=== PATIENT | female | born 1995 | race Caucasian/White ===

== ENCOUNTER 2020-07-06 16:57 | Outpatient (CLI) | payer OTHER, SELFPAY ==
--- NOTE | ~2020-07-06 | US_ITS ---
EXAMINATION: US thyroid EXAM DATE: 07/06/2020 17:16 INDICATION: Enlarged thyroid. TECHNIQUE: Multiple grayscale and Doppler images of the thyroid were obtained (by a technologist who performed the scan) and subsequently reviewed. Individual nodules and recommendations may be reporte d in accordance with TI-RADS system as designated by the 2017 ACR White Paper TI-RADS committee. The re is no prior study for comparison. FINDINGS: The right thyroid lobe measures 4.6 x 1.3 x 1.3 cm, the left measuring 4.6 x 1.5 x 1.6 cm. There is m ildly diffusely heterogeneous and hypervascular thyroid echogenicity. No discrete focal nodules ident ified. IMPRESSION: Thyromegaly. Reviewed, dictated and finalized at location A. IMPRESSION: Thyromegaly.
== END 2020-07-06 16:58 | disposition home or self-care (01) ==
PROVIDERS: Visit Provider Obstetrics & Gynecology
DX: E04.9 Nontoxic goiter, unspecified (principal)
CPT/HCPCS: 76536

== ENCOUNTER 2020-07-08 08:06 | Outpatient (CLI) | payer OTHER, SELFPAY ==
[2020-07-08 09:07] LABS: Free T4 Free Thyroxine 0.96 ng/mL (0.78-2.19)
== END 2020-07-08 08:07 | disposition home or self-care (01) ==
PROVIDERS: Visit Provider Obstetrics & Gynecology
DX: E07.9 Disorder of thyroid, unspecified (principal)
CPT/HCPCS: 36415; 84439; 84443

== ENCOUNTER 2020-09-29 07:10 | Outpatient (CLI) | payer OTHER, SELFPAY ==
[2020-09-29 07:48] LABS: Basophils Percent Auto 0.5 % (0.2-1.2); Eosinophils Absolute Auto 0.2 K/mm3 (0-0.3); Eosinophils Percent Auto 2.7 % (0-4.4); Hematocrit 47.2 % (37.0-47.0); Hemoglobin 16.1 g/dL (12.0-15.0); Immature Granulocyte Absolute 0.01 K/mm3 (0.00-0.031); Immature Granulocyte Percent A 0.2 % (0-0.5); Lymphocytes Absolute Auto 2.51 K/mm3 (0.9-3.2); Lymphocytes Percent Auto 39.8 % (18.3-44.2); Mean Corpuscular HGB Conc 34.1 g/dl (32-36); Mean Corpuscular Volume 99.6 fl (80-100); Mean Platelet Volume 10.6 fl (7.4-10.4); Monocytes Absolute Auto 0.4 K/mm3 (0.1-0.6); Monocytes Percent Auto 6.3 % (2.6-8.5); Neutrophils Absolute Auto 3.2 K/mm3 (1.3-6.7); Neutrophils Percent Auto 50.5 % (45.5-73.1); Platelet Count Result 181 k/mm3 (150-375); Red Blood Count 4.74 M/mm3 (4.2-5.4); Red Cell Distribution Width 12.2 % (11.5-14.5); White Blood Count 6.3 K/mm3 (4.5-10.0)
[2020-09-29 08:08] LABS: Iron 91 ug/dL (37-170)
[2020-09-29 08:18] LABS: Percent Iron Saturation 29 % (20-50)
[2020-09-29 08:33] LABS: Vitamin D 25 Hydroxy 48.4 ng/mL
[2020-09-29 09:05] LABS: Folic Acid 16.9 ng/mL (2.76->20)
[2020-10-03 05:31] LABS: Thyroid Peroxidase Antibodies 39 IU/mL (<9)
[2020-10-03 14:57] LABS: Thyroid Stimulating Immunoglob <89 % baseline (<140)
[2020-10-04 14:24] LABS: Triiodothyronine T3 Free 3.3 pg/mL (2.3-4.2)
== END 2020-09-29 07:11 | disposition home or self-care (01) ==
PROVIDERS: Visit Provider Internal Medicine Endocrinology, Diabetes & Metabolism
DX: R53.83 Other fatigue (principal)
CPT/HCPCS: 36415; 82306; 82607; 82728; 82746; 83540; 83550; 84439; 84443; 84445; 84481; 85025; 86376

== ENCOUNTER 2022-12-29 10:21 | Emergency (ER) | payer OTHER, SELFPAY ==
[2022-12-29 10:47] LABS: Basophils Percent Auto 0.2 % (0.2-1.2); Eosinophils Absolute Auto 0.1 K/mm3 (0-0.3); Hematocrit 41.7 % (37.0-47.0); Hemoglobin 14.6 g/dL (12.0-15.0); Immature Granulocyte Absolute 0.02 K/mm3 (0.00-0.031); Immature Granulocyte Percent A 0.2 % (0-0.5); Lymphocytes Absolute Auto 1.59 K/mm3 (0.9-3.2); Mean Corpuscular Volume 97.2 fl (80-100); Mean Platelet Volume 10.4 fl (7.4-10.4); Monocytes Absolute Auto 0.4 K/mm3 (0.1-0.6); Monocytes Percent Auto 4.7 % (2.6-8.5); Neutrophils Absolute Auto 7.2 K/mm3 (1.3-6.7); Neutrophils Percent Auto 76.9 % (45.5-73.1); Platelet Count Result 149 k/mm3 (150-375); Red Blood Count 4.29 M/mm3 (4.2-5.4); Red Cell Distribution Width 12.7 % (11.5-14.5); White Blood Count 9.4 K/mm3 (4.5-10.0)
[2022-12-29 10:54] LABS: Appearance Urine Slightly Cloudy (Clear); Bilirubin Urine Negative (Negative); Blood Urine Trace-intact (Negative); Color Urine Yellow (Yellow); Glucose Urine UA Negative (Negative); Ketones Urine Negative (Negative); Leukocyte Esterase Ur Trace LEU/UL (Negative); Nitrate Urine Positive (Negative); Protein Urine Negative (Negative); Urobilinogen Urine 0.2 mg/dL (<2.0); pH Urine 6.5 (5.0-9.0)
[2022-12-29 10:58] LABS: Alanine Aminotransferase 14 U/L (6-35); Albumin Level 3.8 g/dL (3.5-5.1); Alkaline Phosphatase 58 U/L (38-126); Anion Gap 8 mmol/L (8-16); Aspartate Amino Transferase 17 U/L (14-36); Bilirubin,Total 0.4 mg/dL (0.2-1.3); Blood Urea Nitrogen 8 mg/dL (7-17); Calcium 8.7 mg/dL (8.4-10.2); Carbon Dioxide 21 mmol/L (22-30); Chloride 106 mmol/L (98-107); Estimated CRCL calculation 139 ml/min; Estimated Glomerular Filt Rate > 60; Glucose 86 mg/dL (65-110); Potassium 3.5 mmol/L (3.4-5.0); Sodium 135 mmol/L (137-145)
[2022-12-29 11:05] LABS: Bacteria Urine 4+ /hpf; Mucus Urine Rare /lpf; Squamous Epithelial Cell Urine Few /hpf (Few)
[2022-12-29 11:06] LABS: Add Urine Microscopic? YES
--- NOTE | 2022-12-29 11:10 | ED.ABDPAIN ---
HPI - Abdominal Pain General Chief Complaint: Abdominal Pain Stated Complaint: poss hernia, 15 weeks preg Time Seen by Provider: 12/29/22 10:26 History of Present Illness HPI narrative: Patient is a 27 y/o female who presents to the ED with concern for an umbilical hernia. Patient is and currently 15 weeks gestation, confirmed IUP, she sees Seema public information relations manager at [facility]. Patient reports yesterday she noticed a small bulge just superior to her umbilical region. She complains of tenderness when pressing on the bulge, but otherwise denies any pain. Denies any lower abdominal pain. Denies vaginal bleeding or leakage of fluid. Denies fevers, nausea, vomiting, constipation, urinary sx's. Related Data Allergies Allergy/AdvReac Type Severity Reaction Status Date / Time No Known Allergies Allergy Mild Verified 12/29/22 10:51 Review of Systems Review of Systems: CONSTITUTIONAL: Denies fever, chills, or sweats. CARDIOVASCULAR: Denies chest pain. RESPIRATORY: Denies dyspnea. GASTROINTESTINAL: See HPI. GENITOURINARY: Denies vaginal bleeding, fluid leakage, dysuria, or hematuria. All systems reviewed & are unremarkable except as noted in HPI and below PMFSH Past Medical History Medical History Syncope chronic history Surgical History Surgical History (Updated 12/29/22 @ 19:25 by Alison Farmer PA-C) No pertinent past surgical history Family History Family History Mother Patient's mother is in good health Father Patient's father is in good health Social History Social History Years smoked: 10 Smoking status: Current every day smoker Tobacco type: cigarettes Second hand tobacco smoke exposure: Yes Alcohol intake: never Substance use: current Gender identity (if verbalized by the patient): Female Spiritual care concerns: No Exam Narrative: GENERAL: Well appearing, well-nourished, non-toxic, in no acute distress. HEAD: Normocephalic, atraumatic. NECK: Supple. No adenopathy, no masses. RESPIRATORY: Airway patent, respirations nonlabored. Clear to auscultation bilaterally, no rales, rhonchi, wheezing. CARDIOVASCULAR: Regular rate and rhythm without murmurs, rubs, or gallops. Peripheral pulses 2+ and equal bilaterally. ABDOMINAL: Soft, very small supraumbilical/ventral wall hernia palpated 2 fingerbreadths above umbilicus, minimally tender to manipulation, bulge soft, no overlying erythema, warmth, skin changes. Normoactive BS. No lower abdominal tenderness. MUSCULOSKELETAL: Moves all extremities. Strength/ROM intact without gross deformities. SKIN: Warm, dry, normal color. No rashes. NEURO: A&O X3. Speech clear. Cranial nerves II-XII grossly intact. Steady gait. No ataxic movements. PSYCHIATRIC: Appropriate mood and affect. Normal interaction. Course Vital Signs Vital signs: Vital Signs Pulse Rate 87 12/29/22 11:41 Respiratory Rate 18 12/29/22 11:41 Blood Pressure 112/69 12/29/22 11:41 Pulse Oximetry 100 12/29/22 11:41 Pulse Rate 87 12/29/22 11:41 Respiratory Rate 18 12/29/22 11:41 Blood Pressure 112/69 12/29/22 11:41 Pulse Oximetry 100 12/29/22 11:41 MDM - Abdominal Pain MDM Narrative Medical decision making narrative: Patient presented to ED with concern for umbilical hernia, very small hernia defect palpated on exam, minimally tender, no overlying skin changes. Able to partially reduce, likely due to small wall defect/opening. Patient without any worrisome symptoms regarding hernia. She is currently , 15 weeks gestation, confirmed IUP. No lower abdominal pain, vaginal bleeding, nausea/vomiting. I updated patient case with Dr. Gill, on-call for [facility]. No further recommendations at this time. Patient has OB follow-up on 01/09. I discuss
[2022-12-29 11:41] VITALS: BP 112/69; PULSE 87; RESP 18; O2SAT 100
== END 2022-12-29 11:45 | disposition home or self-care (01) ==
PROVIDERS: Emergency Provider Physician Assistant
DX: O99.612 Diseases of the digestive system complicating pregnancy, second trimester (principal); K43.9 Ventral hernia without obstruction or gangrene; O23.42 Unspecified infection of urinary tract in pregnancy, second trimester; O99.332 Smoking (tobacco) complicating pregnancy, second trimester; F17.210 Nicotine dependence, cigarettes, uncomplicated; Z3A.15 15 weeks gestation of pregnancy
CPT/HCPCS: 36415; 80053; 81001; 85025; 87077; 87086; 87186; 99283

== ENCOUNTER 2023-05-30 12:18 | Inpatient (IN) | payer OTHER, SELFPAY ==
[2023-05-30] VITALS (35 sets, daily range): BP systolic 99–140; BP diastolic 45–96; PULSE 64–109; TEMP 36.6–37.5; BMI 26.1
[2023-05-30 10:13] LABS: Collection Time Urine 24 HOURS
[2023-05-30 10:19] LABS: Basophils Percent Auto 0.1 % (0.2-1.2); Eosinophils Absolute Auto 0.1 K/mm3 (0-0.3); Eosinophils Percent Auto 0.7 % (0-4.4); Hematocrit 41.2 % (37.0-47.0); Hemoglobin 13.9 g/dL (12.0-15.0); Immature Granulocyte Absolute 0.04 K/mm3 (0.00-0.031); Immature Granulocyte Percent A 0.4 % (0-0.5); Immature Platelet Fraction Pct 18.3 % (0.9-11.2); Lymphocytes Absolute Auto 1.86 K/mm3 (0.9-3.2); Lymphocytes Percent Auto 20.5 % (18.3-44.2); Mean Corpuscular HGB Conc 33.7 g/dl (32-36); Mean Corpuscular Hemoglobin 33.2 pg (26-34); Mean Corpuscular Volume 98.3 fl (80-100); Mean Platelet Volume 12.9 fl (7.4-10.4); Monocytes Absolute Auto 0.6 K/mm3 (0.1-0.6); Monocytes Percent Auto 6.4 % (2.6-8.5); Neutrophils Absolute Auto 6.5 K/mm3 (1.3-6.7); Neutrophils Percent Auto 71.9 % (45.5-73.1); Platelet Count Result 112 k/mm3 (150-375); Red Blood Count 4.19 M/mm3 (4.2-5.4); Red Cell Distribution Width 13.8 % (11.5-14.5); White Blood Count 9.1 K/mm3 (4.5-10.0)
[2023-05-30 10:21] LABS: Creatinine Urine 95.2 mg/dL; Patient Weight 152 Lbs; Total Protein Urine Random 44 mg/dL
[2023-05-30 10:26] LABS: Alanine Aminotransferase 15 U/L (6-35); Albumin Level 3.5 g/dL (3.5-5.1); Alkaline Phosphatase 113 U/L (38-126); Anion Gap 3 mmol/L (8-16); Aspartate Amino Transferase 18 U/L (14-36); Bilirubin,Total 0.3 mg/dL (0.2-1.3); Blood Urea Nitrogen 10 mg/dL (7-17); Carbon Dioxide 22 mmol/L (22-30); Chloride 107 mmol/L (98-107); Estimated CRCL calculation 88 ml/min; Estimated Glomerular Filt Rate > 60; Glucose 94 mg/dL (65-110); Potassium 3.8 mmol/L (3.4-5.0); Sodium 132 mmol/L (137-145); Uric Acid 4.8 mg/dL (2.5-7.5)
[2023-05-30 10:39] LABS: Total Protein Urine 24 Hr 396 mg/24hr (28-141); Total Volume 24 Hour Urine 900 ml
[2023-05-30 10:47] LABS: Creatinine Clearance Urine 84.8 ml/min (75-125)
--- NOTE | 2023-05-30 13:33 | LDADM ---
This patient, Ev Logan, was admitted to Labor/Delivery/Recovery 108 on 05/30/23 at 12:18. Plans for labor, pain management and were discussed with patient. Patient/family oriented to hospital policies and general routines including ID bracelet, bed and alarms, visiting hours, pain management, procedures, bathroom and other care routines, personal items, smoking policy, room service/diet and guest tray routines, security routines, and visiting hours. Patient/Family are encouraged to report perceived risks to care and to ask questions if they do not understand what they are told or what they should do. See OBIX for further documentation.
[2023-05-30] MEDS: DINOPROSTONE 10 MG VAG INSERT VAGINAL (14:04)
[2023-05-30 14:49] LABS: HIV 1/2 Ab P24 Ag Result Negative (Negative)
[2023-05-30] MEDS: FAMOTIDINE 20 MG/2 ML VIAL IV PUSH (16:28)
--- NOTE | 2023-05-30 18:22 | PM.IMHP ---
H&P: HPI History of Present Illness Date/Time: 05/30/23 18:22 Chief Complaint: induction of labor Narrative: Ev is a at 37.4 for IOL preE. 24 hour urine 398 today. BPs very mildly elevated. US today also showed IUGR with growth at 8% with AC at 1%. GBS neg. Of note, FOB during this in March. Review of Systems Review of Systems: All systems reviewed & are unremarkable except as noted in HPI and below PMFSH Past Medical History Medical History (Updated 05/30/23 @ 18:24 by Linnea Gill MD) Syncope chronic history Surgical History Surgical History (Updated 12/29/22 @ 19:25 by Alison Farmer PA-C) No pertinent past surgical history Family History Family History Mother Patient's mother is in good health Father Patient's father is in good health Social History Social History Years smoked: 10 Smoking status: Current every day smoker Tobacco type: cigarettes Second hand tobacco smoke exposure: No Alcohol intake: never Substance use: current Lack of Transportation: No Lack of Food: Never True Current Housing: I Have Housing Concerned About Future Housing: YES Difficulty Paying Gas/Electric Bills: No Difficulty Paying for Meds: No Currently Unemployed: No Education: Associate Degree Difficulty w/ Childcare or Family Care: No Gender identity (if verbalized by the patient): Female Spiritual care concerns: No Meds Home Medications and Allergies Home Medications Medication Instructions Recorded Confirmed Type docusate sodium 100 mg capsule 100 mg PO BID PRN Constipation 11/17/19 Rx medroxyprogesterone 150 mg/mL 150 mg IM [id number] #1 mL 11/17/19 Rx intramuscular suspension (Depo-Provera) cephalexin 500 mg capsule 500 mg PO Q6H 7 days #28 caps 12/29/22 05/30/23 Rx Classic 05/30/23 History sertraline 50 mg tablet 50 mg PO DAILY 05/30/23 05/30/23 History Allergies Allergy/AdvReac Type Severity Reaction Status Date / Time No Known Allergies Allergy Mild Verified 12/29/22 10:51 Vital Signs Vital Signs - 24 hr 05/30/23 10:07 05/30/23 10:16 05/30/23 10:31 Temperature Pulse Rate 75 75 75 Blood Pressure 140/70 127/84 119/77 Oxygen Delivery 05/30/23 10:46 05/30/23 11:01 05/30/23 11:16 Temperature Pulse Rate 67 69 69 Blood Pressure 116/69 139/79 124/79 Oxygen Delivery 05/30/23 11:31 05/30/23 11:45 05/30/23 11:00 Temperature 98 F Pulse Rate 68 65 Blood Pressure 114/73 119/70 Oxygen Delivery 05/30/23 12:01 05/30/23 14:04 05/30/23 14:15 Temperature Pulse Rate 69 64 65 Blood Pressure 119/70 140/83 110/59 L Oxygen Delivery 05/30/23 14:30 05/30/23 14:46 05/30/23 15:00 Temperature Pulse Rate 71 71 81 Blood Pressure 114/64 109/57 L 110/65 Oxygen Delivery 05/30/23 15:15 05/30/23 15:30 05/30/23 15:45 Temperature Pulse Rate 75 79 79 Blood Pressure 106/46 L 125/73 122/70 Oxygen Delivery 05/30/23 16:00 05/30/23 16:29 05/30/23 17:00 Temperature 98.3 F Pulse Rate 91 78 74 Blood Pressure 132/85 122/45 L 134/96 H Oxygen Delivery 05/30/23 17:30 05/30/23 18:00 05/30/23 13:24 Temperature Pulse Rate 71 68 Blood Pressure 135/78 129/82 Oxygen Delivery Room Air Exam Const: General: no acute distress Resp: Effort & Inspection: normal respiratory effort Auscultation: clear to auscultation bilaterally Cardio: Rate: regular rate Rhythm: regular rhythm GI: GI Palp: Yes Soft to palpation Extrem: General: normal to inspection H&P: Results Labs Labs: Short CBC 05/30/23 Range/Units 09:58 WBC 9.1 (4.5-10.0) K/mm3 Hgb 13.9 (12.0-15.0) g/dL Hct 41.2 (37.0-47.0) % Plt Count 112 L (150-375) k/mm3 BMP 05/30/23 09:57 Sodium 132 L Potassium 3.8 Chloride 107 Carbon Jose Carlos
--- NOTE | 2023-05-30 18:45 | WPDANESEPP ---
Anes - Eval Pre Procedure Procedure: labor epidural Date/Time: 05/30/23 18:45 Surgeon: leandra Preop Diagnosis: pain during labor Pre Op Diagnosis: PIH Patient Data Age: 27 Gender: F Height: 1.63 m Weight: 69 kg Last Vital Signs Temp 36.8 C 05/30/23 16:00 Pulse 109 H 05/30/23 18:31 BP 121/73 05/30/23 18:31 O2 Del Method Room Air 05/30/23 13:24 Allergies Allergy/AdvReac Type Severity Reaction Status Date / Time No Known Allergies Allergy Mild Verified 12/29/22 10:51 Home Medications Medication Instructions Recorded Confirmed Type docusate sodium 100 mg capsule 100 mg PO BID PRN Constipation 11/17/19 Rx medroxyprogesterone 150 mg/mL 150 mg IM [id number] #1 mL 11/17/19 Rx intramuscular suspension (Depo-Provera) cephalexin 500 mg capsule 500 mg PO Q6H 7 days #28 caps 12/29/22 05/30/23 Rx Classic 05/30/23 History sertraline 50 mg tablet 50 mg PO DAILY 05/30/23 05/30/23 History Laboratory Tests 05/30/23 05/30/23 05/30/23 09:57 09:58 12:44 WBC 9.1 K/mm3 (4.5-10.0) RBC 4.19 L M/mm3 (4.2-5.4) Hgb 13.9 g/dL (12.0-15.0) Hct 41.2 % (37.0-47.0) MCV 98.3 fl (80-100) MCH 33.2 pg (26-34) MCHC 33.7 g/dl (32-36) RDW 13.8 % (11.5-14.5) Plt Count 112 L k/mm3 (150-375) MPV 12.9 H fl (7.4-10.4) Immature Gran % (Auto) 0.4 % (0-0.5) Neut % (Auto) 71.9 % (45.5-73.1) Lymph % (Auto) 20.5 % (18.3-44.2) Lynn % (Auto) 6.4 % (2.6-8.5) Eos % (Auto) 0.7 % (0-4.4) Baso % (Auto) 0.1 L % (0.2-1.2) Lymph # (Auto) 1.86 K/mm3 (0.9-3.2) Lynn # (Auto) 0.6 K/mm3 (0.1-0.6) Eos # (Auto) 0.1 K/mm3 (0-0.3) Baso # (Auto) 0.0 K/mm3 (0.0-0.1) Abs Immat Gran (auto) 0.04 H K/mm3 (0.00-0.031) Absolute Neuts (auto) 6.5 K/mm3 (1.3-6.7) Absolute Nucleated RBC 0.0 K/mm3 (0.0-0.012) Nucleated RBC % 0.0 % (0.0-0.2) % Immature Plt Fraction 18.3 H % (0.9-11.2) Sodium 132 L mmol/L (137-145) Potassium 3.8 mmol/L (3.4-5.0) Chloride 107 mmol/L (98-107) Carbon Dioxide 22 mmol/L (22-30) Anion Gap 3 L mmol/L (8-16) BUN 10 mg/dL (7-17) Creatinine 0.70 mg/dL (0.7-1.0) Estim Creat Clear Calc 88 ml/min Estimated GFR > 60 (59 - ) Glucose 94 mg/dL (65-110) Uric Acid 4.8 mg/dL (2.5-7.5) Calcium 8.0 L mg/dL (8.4-10.2) Total Bilirubin 0.3 mg/dL (0.2-1.3) AST 18 U/L (14-36) ALT 15 U/L (6-35) Alkaline Phosphatase 113 U/L (38-126) Total Protein 6.0 L g/dL (6.3-8.2) Albumin 3.5 g/dL (3.5-5.1) U Random Total Protein 44 mg/dL Ur 24 Hour Volume 900 ml Urine Creatinine 95.2 mg/dL Creatinine Clearance 84.8 ml/min (75-125) Ur Total Protein 24 Hr 396 H mg/24hr (28-141) RPR Pending HIV 1&2 Ab/P24 Ag 4thGn Negative (Negative) Blood Type A Positive Antibody Screen Negative Patient hx anesthesia problems: none Family hx anesthesia problems: none Results Review: All pre-operative results and documents have been reviewed as part of the pre-operative evaluation. [facility] Past Medical History Medical History (Updated 05/30/23 @ 18:24 by Linnea Gill MD) Syncope chronic history Surgical History Surgical History (Updated 12/29/22 @ 19:25 by Alison Farmer PA-C) No pertinent past surgical history Family History Family History Mother Patient's mother is in good health Father Patient's father is in good health Social History Social History (Reviewed 12/02
[2023-05-31] VITALS (87 sets, daily range): BP systolic 83–196; BP diastolic 46–175; PULSE 58–215; RESP 17–18; TEMP 36.6–37.8; O2SAT 94–99
[2023-05-31] MEDS: OXYTOCIN 30 UNITS/NS 500 ML 30 UNITS/500 ML BAG IV CONT (03:24)
[2023-05-31] MEDS: LACTATED RINGERS 1,000 ML 125 ML IV CONT (03:24)
--- NOTE | 2023-05-31 06:25 | PM.OBPRVD ---
OB - Delivery Note Procedure Delivery date: 05/31/23 Procedure: Events: Intrauterine Growth Restriction (IUGR) and Preeclampsia w/o severe features Induction method: Per Pitocin Protocol and Per Cervidil Protocol Delivery monitor: External FHT and External Uterine Route of delivery: Laceration Description: None Specimen: Yes Quantitative Blood Loss (ml): 75 Anesthesia type: Epidural Disposition: Floor Narrative: With adequate expulsive efforts by the mother, the baby's head was delivered OA. The baby's anterior shoulder was delivered under the pubic symphysis without difficulty. The posterior shoulder and the rest of the baby delivered without difficulty. The infant was placed on the mothers chest and suctioned and stimulated. The cord was clamped and cut after 30 seconds. Mother and baby both stable. [place] Baby Date of : 05/31/23 Time of : 06:09 Weeks of gestation at delivery: 37 gender: Female presentation: vertex Placenta delivery description: Spontaneous Cord Vessel Description: 3 Vessels, Nuchal Cord and Delayed Cord Clamping score one minute: 8 score five minutes: 9
[2023-05-31] MEDS: OXYTOCIN 30 UNITS/NS 500 ML 30 UNITS/500 ML BAG 125 UNITS IV CONT (06:44)
--- NOTE | 2023-05-31 08:57 | OBPPTRN ---
Patient transferred to post room # 282 via wheelchair. Support person present. Oriented to unit, room, information board, rooming in, admission packet and security measures. Patient verbalizes understanding.
[2023-05-31] MEDS: TETANUS,DIPHTHERIA,AC PERTUSSIS ADULT (0.5 ML) BOOSTRIX IM (10:42)
[2023-05-31] MEDS: MULTIVIT/MIN/PREN/FOL AC/IRON TABLET 1 TAB PO (10:42)
[2023-05-31] MEDS: IBUPROFEN 600 MG TABLET PO (17:18)
--- NOTE | 2023-06-01 04:42 | PM.OBPNVD ---
OB - PN: Subj Subjective Date/time seen: 06/01/23 04:42 Patient comments: no complaints and pain well controlled baby status: doing well and nursing well Narrative: Baby with some low blood sugars so nursing q2 hours now. OB - PN: Obj Data Labs 05/30/23 09:58 05/30/23 09:57 OB - PN A/P Plan day: 1 Plan: routine care Comments: H/H pending. Normotensive since delivery DC home tomorrow. Time Spent With Patient Time: Total time spent is greater than 50% in coordination of care (as documented) at patient's floor/unit and/or counseling patient: Time with patient: less than 15 minutes Exam Narrative: NAD abdomen soft, nontender, fundus firm below the umbilicus Extremities nontender, 1+ edema
[2023-06-01 05:43] LABS: Hematocrit 39.9 % (37.0-47.0); Hemoglobin 13.3 g/dL (12.0-15.0)
[2023-06-01 07:35] VITALS: BP 129/78; PULSE 57; RESP 18; TEMP 36.7
[2023-06-01 10:16] LABS: Rapid Plasma Reagin Non-Reactive (NonReactive)
[2023-06-01] MEDS: IBUPROFEN 600 MG TABLET PO (10:26)
[2023-06-01] MEDS: MULTIVIT/MIN/PREN/FOL AC/IRON TABLET 1 TAB PO (10:26)
[2023-06-01] MEDS: SERTRALINE HCL 50 MG TABLET PO (10:26)
--- NOTE | 2023-06-01 12:10 | WPDANLDPN2 ---
Anes-Prog Note L&D Date/Time: 06/01/23 12:10 Comfortable throughout: labor and delivery Neuraxial method: epidural Epidural/Spinal procedure site: clean & non-tender Neuro status: Neuro function grossly intact. Cardiovascular status: normal Respiratory status: normal Airway patency: baseline Mental status: baseline Post-Op hydration status: normal Vital Signs: Last Vital Signs Temp 98.1 F 06/01/23 07:35 Pulse 57 L 06/01/23 07:35 Resp 18 06/01/23 07:35 BP 129/78 06/01/23 07:35 Pulse Ox 99 05/31/23 22:20 O2 Del Method Room Air 05/30/23 13:24 Pain score (VAS): 0 Post-procedural complaints: none Patient feedback: Patient satisfied with anesthetic care.
[2023-06-01 18:40] VITALS: BP 145/87; PULSE 63; RESP 18; TEMP 37.3; O2SAT 96
[2023-06-02] MEDS: IBUPROFEN 600 MG TABLET PO (04:54)
[2023-06-02 07:25] VITALS: BP 124/73; PULSE 64; RESP 16; TEMP 36.6; O2SAT 98
--- NOTE | 2023-06-02 07:35 | PM.OBPNVD ---
OB - PN: Subj Subjective Date/time seen: 06/02/23 07:35 Patient comments: no complaints baby status: doing well [place] feeding status: exclusively breast feeding OB - PN: Obj Data Labs 06/01/23 05:38 05/30/23 09:57 Labs: Laboratory Results - last 24 hr 05/30/23 12:44 RPR Non-reactive OB - PN A/P Plan day: 2 Plan: routine care and discharge home Comments: BP check 1 week Time Spent With Patient Time: Total time spent is greater than 50% in coordination of care (as documented) at patient's floor/unit and/or counseling patient: Time with patient: less than 15 minutes Exam Narrative: NAD abdomen soft, nontender, fundus firm below the umbilicus Extremities nontender, 1+ edema
--- NOTE | 2023-06-02 07:44 | PM.DS ---
DS: Admitting Diagnosis Discharge Date 06/02/23 Admitting Diagnosis IUP 37w, PreEclampsia DS: Discharge Diagnosis Discharge Diagnosis (1) IUGR (intrauterine growth restriction): Status: Acute (2) Preeclampsia: Code(s): O14.90 - Unspecified pre-eclampsia, unspecified trimester Status: Acute (3) , delivered: Code(s): O80 - Encounter for full-term uncomplicated delivery Status: Acute DS: Summary Hospital Course Hospital Course: Ev was admitted at 37+ weeks for induction of labor for PreEclampsia. Also baby with IUGR. She was induced with cervidil and pitocin and proceeded to have an uncomplicated vaginal delivery. Her course was uncomplicated with BPs in normal to mildly elevated range, and she was discharged home on PPD 2 in stable condition. Time Spent with Patient Time attestation: Total time spent providing and/or coordinating discharge services: Exam Narrative: NAD abdomen soft, appropriately tender Ext non tender, 1+ edema DS: Data Data Completed and Pending Pending studies at discharge: Pending at discharge 05/31/23 06:50 Surgical [PTH] Routine Labs on day of discharge: Labs from last 24 hours 05/30/23 12:44 RPR Non-reactive Discharge Plan Discharge Attending physician on discharge: Linnea Gill Discharging Clinician: Linnea Gill Anticipated Discharge Date/Time: 06/02/23 07:41 Patient Disposition: Home, Self-Care Activity: pelvic rest Diet: regular Patient Instructions: Antibiotic Form Stand Alone Forms: General Discharge Information Follow-up/Referrals: Linnea Gill MD [Physician] - 1 Week Discharge Medications: New sertraline [Zoloft] 50 mg Tablet 50 mg PO QAM Qty: 30 3RF Continued docusate sodium 100 mg Capsule 100 mg PO BID PRN (Reason: Constipation) 0RF Classic Discontinued medroxyprogesterone [Depo-Provera] 150 mg/mL suspension 150 mg IM [id number] Qty: 1 2RF cephalexin 500 mg capsule 500 mg PO Q6H 7 Days Qty: 28 0RF sertraline 50 mg tablet 50 mg PO DAILY Date of admission: 05/30/23 12:18 Primary Care Provider: PHYSICIAN,DAIRY WORKER Admitting Provider: Linnea Gill Attending physician on admission: Linnea Gill Condition: Stable
[2023-06-02] MEDS: SERTRALINE HCL 50 MG TABLET PO (09:51)
[2023-06-02] MEDS: MULTIVIT/MIN/PREN/FOL AC/IRON TABLET 1 TAB PO (09:51)
[2023-06-04 11:08] VITALS: BP 135/69; PULSE 78; RESP 18; TEMP 36.8; O2SAT 100
== END 2023-06-02 11:27 | disposition home or self-care (01) | DRG 560 ==
LOC: ANHOBOP 12:18 → ANHOBPP 12:18 → ANHLDR 12:28 → ANHOB2 05-31 09:02
PROVIDERS: Admitting Provider Obstetrics & Gynecology; Visit Provider Obstetrics & Gynecology
DX: O14.04 Mild to moderate pre-eclampsia, complicating childbirth (principal); O36.5930 Maternal care for other known or suspected poor fetal growth, third trimester, not applicable or unspecified; F17.210 Nicotine dependence, cigarettes, uncomplicated; O99.334 Smoking (tobacco) complicating childbirth; Z3A.37 37 weeks gestation of pregnancy; Z37.0 Single live birth
CPT/HCPCS: 36415; 80053; 81050; 82575; 84156; 84550; 85014; 85018; 85025; 85055; 86592; 86703; 86850; 86900; 86901; 88307; 90715; A9270; G0432; J2590; J2795; J7120

== ENCOUNTER 2025-05-31 10:16 | Emergency (ER) | payer OTHER, SELFPAY ==
--- NOTE | ~2025-05-31 | CT_ITS ---
EXAMINATION: CT abdomen pelvis w con DATE: 05/31/2025 12:46 INDICATION: Lower abdominal pain. Urinary tract infection. TECHNIQUE: Computed tomography (CT) of the abdomen and pelvis was performed with 100 mL Omnipaque-350 intravenous contrast. Automated exposure control and iterative reconstruction technique were employe d. The dose-length product was 188.51 mGy-cm. COMPARISON: None FINDINGS: Lung bases are clear. Heart size is normal. No pericardial or pleural effusion. Liver, gallbladder, s pleen, pancreas, bilateral adrenal glands and kidneys are normal. Bladder and anteverted uterus are u nremarkable. 2 cm lung likely transient small bowel intussusception in the left hemipelvis. No bowel obstruction. No free intraperitoneal gas or fluid. No pathologically enlarged abdominal or pelvic lym phadenopathy. Mild lumbar and lower thoracic spondylosis. IMPRESSION: 1. Likely transient left lower quadrant small bowel intussusception with no bowel obstruction. No oth er acute intra-abdominal/pelvic process. Reviewed, dictated and finalized at location B. IMPRESSION: 1. Likely transient left lower quadrant small bowel intussusception with no bow el obstruction. No other acute intra-abdominal/pelvic process.
[2025-05-31 10:26] VITALS: BP 118/75; PULSE 80; RESP 16; TEMP 36.6; O2SAT 96
--- OUTSIDE RECORDS SUMMARY | 2025-05-31 10:26 | XMS_ITS | Data Portability ---
Author Organization [facility] Address [address] [place] [address] [place] [address] Assessment Encounter Date Assessment Date Assessment LastModified by Organization Details LastModified Time 11/18/2023 11/18/2023 Annual gynecological exam performed. Patient will come back in a year unless there are new symptoms. [email or web address] Not available 11/18/2023 10:41:36 Plan of Treatment Reminders Order Date Submit Date Provider Last Modified By Organization Details Last Modified Time Details Appointments None recorded. Lab culture, urine [address] [facility] (Lab), [address], [place], [address], 08:03:04 urinalysis, dipstick 2023 024 [email or web address] 4 [place] [facility] [address], [place], [address], 12:50:16 Referral None recorded. Procedures None recorded. Surgeries None recorded. Imaging None recorded. 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 Patient InstructionsNo instructions recorded. Reason for Referral None Reported. 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 Elect loraine hernandez d by LuisC arlos Pham, CT on 11/20 at 8:51 PM ----- ----- ----- ----- ----- ----- ----- ----- ----- ----- ----- ----- ----- ----- ----- ----- ----- ---- COMME NT: This speci men was revie wed by a Cytot echno logis t and/o r Patho logis t (as indic ated in this repor t) after evalu ation using the Thinp rep Imagi ng Syste m. CLINI CH[facility]IN[facility]O INFOR MATIO N: Menst rual Statu s: LMP (if appli cable ): Clini [facility]ito Histo ry/Pr eviou s Pap: Type of Neopl raymundo (if appli cable ): Signi fican t Clini [facility] Findi ngs: Other Histo ry: Hormo merlin (if appli cable ): PAP EDUCA BELLE L NOTE: The Pap Test is a scree radha test with an inher ent false negat piedad rate. Liqui d-bas ed sampl ing may decre ase, but will not elimi florentin, false negat piedad resul ts. A negat piedad resul t does not precl ude the prese nce and/o r devel opmen t of disea se, since the prese nce of abnor mal cells in the sampl e depen ds on the locat ion of the lesio n and sampl ing techn ique. Allyson nued regul ar scree radha is the best metho d of cance r preve ntion . If repor mike cytol ogic findi ng do not corre late with physi chapincito and/o r histo rical findi ngs, furth er inves tigat ion is recom chong d, as clini edil terry nted. Not Available [facility] (Lab) [address], [place], [address], 11/20/2023 21:55:18 07/02/20 24 07/02/2024 CULTU RE: URINE result report SEE RESULT S BELOW abnormal Test: Cultu re: Urine Speci men Sourc e: Urine - Clean Catch Speci men Type: Urine Speci men Date: 1344 Resul t Date: 0659 Resul t Statu s: Final resul t Abnor mal: Yes Resul ting Lab: [facility] [address] [address] Tel: CULTU RE ----- ----- ----- --- >100, 000 CFU/m l Esche luz marina a coli (Abno rmal) SUSCE PTIBI LITY ----- ----- ----- --- Esche luz marina a coli METHO D SURAJ ----- ----- ----- ----- ----- ---- ----- ----- ----- ----- ----- AMPIC ILLIN <=8 ug/mL Susce ptibl e AMPIC ILLIN /SULB ACTAM <=4 ug/mL Susce ptibl e AZTRE ONAM <=4 ug/mL Susce ptibl e CEFAZ PRASHANT <=2 ug/mL Susce ptibl e CEFEP THAD <=2 ug/mL Susce ptibl e CEFTA ZIDIM E <=1 ug/mL Susce ptibl e CEFTR IAXON E <=1 ug/mL Susce ptibl e CIPRO FLOXA GEMINI <=0.2 5 ug/mL Susce ptibl e GENTA MICIN <=2 ug/mL Susce ptibl e LEVOF LOXAC IN <= 0.5 ug/mL Susce ptibl e MEROP ENEM <=1 ug/mL Susce ptibl e NITRO FURAN TOIN <=32 ug/mL Susce ptibl e PIPER ACILL IN/TA ZOBAC DOMINGUEZ <=8 ug/mL Susce ptibl e TOBRA MYCIN <=2 ug/mL Susce ptibl e TRIME THOPR IM/LE LFAME THOXA ZOLE <=0.5 ug/mL Susce ptibl e Not Available [facility] (Lab) [address], [place], [address], 07/05/2024 08:03:04 07/02/20 24 07/02/2024 urina lysis , dipst ick Leukocytes +2 Not Available [facility] [address], [place], [address], 07/02/2024 12:46:40 07/02/20 24 07/02/2024 urina lysis , dipst ick Nitrite Pos Not Available [place] [address], [place], [address], 07/02/2024 12:46:40 07/02/20 24 07/02/2024 urina lysis , dipst ick Protein +2 Not Available [place] [address], [place], [address], 07/02/2024 12:46:40 07/02/20 24 07/02/2024 urina lysis , dipst ick Blood ++ Not Available [place] [address], [place], [address], 07/02/2024 12:46:40 07/02/20 24 07/02/2024 urina lysis , dipst ick Appearance Dark/c loudy Not Available [place] [address], [place], [address], 07/02/2024 12:46:40 07/02/20 24 07/02/2024 urina lysis , dipst ick Color Brown Not Available [place] [address], [place], [address], 07/02/2024 12:46:40 07/06/20 24 07/06/2024 BHCG, QUANT ITATI VE B-HCG <0.2 mIU/m L This assay was perfo rmed using [employer] ratio n reage nts and test kits. Value s obtai tabby with other assay metho ds or kits canno t be used inter flores eably . Refer ence Range s: Non-p regna nt, preme nopau lauren women : 0.0-5 .3 mIU/m L Postm enopa usal women : 0.0-7 .0 mIU/m L Margarita l Pregn maryam: Gesta belle l Age bHCG Conc. - mIU/m L 3 Weeks 5.8 - 71.7 4 Weeks 9.5 - 750 5 Weeks 217-7 138 6 Weeks 158 - 31,79 5 7 Weeks 3,697 - 162,5 63 8 Weeks 32,06 5 - 149,5 71 9 Weeks 63,80 3 - 151,4 10 10 Weeks 46,50 9 - 186,9 77 12 Weeks 27,83 2 - 210,6 12 14 Weeks 13,95 0 - 62,53 0 15 Weeks 12,03 9 - 70,97 1 16 Weeks 9,040 - 56,45 1 17 Weeks 8,175 - 55,86 8 18 Weeks 8,099 - 58,[address] [facility] (Lab) [address], [place], [address], 07/07/2024 03:39:54 Result Notes None recorded. Problems Name Problem SNOMED Code Status Onset Date Resolution Date Notes Provider Name and Address Organization Details Recorded Time 89079277 Completed 202206/19/2023 Nicole Le [facility] 3 12:49:55 Depressive disorder 49326150 Completed S/O on 03-18-23. History of depressi on. Started zoloft. Nicole Le [facility] 3 12:49:50 growth restrictio n [id number] Completed 2022 Nicole Le [facility] 3 12:49:50 growth restrictio n 75177730 [facility] Mimi [facility] 3 12:49:50 Problem Notes None recorded. Procedures Surgical History Date Name Laterality Status Provider Name and Address Organization Details Recorded Time 3 Date of Last Pap Smear completed Veena Rojo [facility] 06/24/2024 09:51:11 1 procedure on elbow completed [facility] 11/20/2022 20:34:55 8 procedure on knee completed [facility] 11/20/2022 20:35:07 4 procedure on hip completed [facility] 11/20/2022 20:34:03 2 procedure on hip completed [facility] 11/20/2022 20:33:58 0 procedure on hip completed [facility] 11/20/2022 20:33:52 8 procedure on hip completed [facility] 11/20/2022 20:33:45 7 procedure on hip completed [facility] 11/20/2022 20:34:43 6 procedure on hip completed [facility] 11/20/2022 20:33:39 5 procedure on hip completed [facility] 11/20/2022 20:34:18 4 procedure on hip completed [facility] 11/20/2022 20:33:32 Imaging Results None recorded. Procedure Notes None recorded. Medical Equipment None Reported. Allergies No known drug allergies Medications Name Sig Start Date Stop Date Status Note LastModified by Organization Details LastModified Time sertralin e 100 mg tablet TAKE 1 TABLET BY MOUTH EVERY DAY DIRECTED active Not Available Not Available No t Available cephalexi n 500 mg capsule TAKE 1 CAPSULE BY MOUTH EVERY 6 HOURS FOR 7 DAYS 01/09 completed Not Available Not Available Not Available sertralin e 50 mg tablet TAKE 1 TABLET BY MOUTH EVERY MORNING 11/18 completed Not Available Not Available Not Available Depo-Prov era 150 mg/mL intramusc ular syringe Inject 1 mL every 3 months by intramus cular route. 2023 active depo brought in by pt and it the injectio n was given in the pt's right hip pt handled well next injectio n due 09/22- 10/06 2024 Not Available Not Available Not Available nitrofura ntoin monohydra te/macroc rystals 100 mg capsule TAKE 1 CAPSULE BY MOUTH EVERY 12 HOURS FOR 7 DAYS active Not Available Not Available No t Available Vitals Date Recorded Body height Body mass index (BMI) Body weight Systolic blood pressure Diastolic blood pressure Provider Name and Address Organization Details Last Updated DateTime 06/24/2024 160.02 cm 19.8 kg/m2 02207.35 g 113 mm[Hg] 72 mm[Hg] Veena Rojo [facility] 4 09:49:39 Date Recorded Body height Body mass index (BMI) Body weight Systolic blood pressure Diastolic blood pressure Provider Name and Address Organization Details Last Updated DateTime 11/18/2023 160.02 cm 25.2 kg/m2 33746.12 g 125 mm[Hg] 78 mm[Hg] Ciara Mcnair [facility] 3 10:43:26 Social History Question Answer Notes LastModified by Organizat ion Details LastModified Time Tobacco Smoking Status Former Smoker Shaina Bangura shira, [facility] 06/13/2023 16:03:18 If You Are , What Was Your Level Of Alcohol Consumption Prior To ? Occasional [email or web address] Information not available 06/13/2023 Are You Blind Or Do You Have Difficulty Seeing? No [email or web address] Information not available 11/19/2022 What Is Your Level Of Caffeine Consumption? Moderate [email or web address] Information not available 11/19/2022 How Much Tobacco Do You Chew? None [email or web address] Information not available 11/19/2022 In The 14 Days Before Symptom Onset, Have You Had Close Contact With A Laboratory-confir med COVID-19 While That Case Was Ill? No [email or web address] Information not available 11/19/2022 In The 14 Days Before Symptom Onset, Have You Had Close Contact With A Person Who Is Under Investigation For COVID-19 While That Person Was Ill? No [email or web address] Information not available 11/19/2022 Have You Been To An Area Known To Be High Risk For COVID-19? No [email or web address] Information not available 11/19/2022 Are You Deaf Or Do You Have Serious Difficulty Hearing? No [email or web address] Information not available 11/19/2022 What Type Of Diet Are You Following? REGULAR [email or web address] Information not available 11/19/2022 What Is The Highest Grade Or Level Of School You Have Completed Or The Highest Degree You Have Received? HU05713-6 [email or web address] Information not available 11/19/2022 Are There Any Guns Present In Your Home? No [email or web address] Information not available 11/19/2022 Do You Use Protection During Sex? No [email or web address] Information not available 11/19/2022 Do You Use Your Seat Belt Or Car Seat Routinely? Yes [email or web address] Information not available 11/19/2022 Do You Have Smoke And Carbon Monoxide Detectors In Your Home? Yes [email or web address] Information not available 11/19/2022 At What Age Did You Start Smoking Tobacco? 11 Information not available 11/19/2022 How Much Tobacco Do You Smoke? 0.25 PPD [email or web address] Information not available 11/19/2022 Do You Use Sunscreen Routinely? Yes [email or web address] Information not available 11/19/2022 Have You Used IV Drugs? No [email or web address] Information not available 11/19/2022 Do You Have Difficulty Walking Or Climbing Stairs? No [email or web address] Information not available 06/13/2023 Sex: Unknown Functional Status Question Answer Note LastModified by Organizat ion Details LastModified Time Do you use any illicit or recreational drugs? Yes marijuana [email or web address] Information not available 11/20/2022 Do you or have you ever used any other forms of tobacco or nicotine? Yes [email or web address] Information not available 06/13/2023 What is your level of alcohol consumption? None [email or web address] Information not available 11/19/2022 Are you able to walk? YESWOREST [email or web address] Information not available 11/19/2022 Are you able to care for yourself? Yes [email or web address] Information not available 06/13/2023 Do you have difficulty dressing or bathing? No [email or web address] Information not available 06/13/2023 Do you or have you ever used e-cigarettes or vape? Current user of electronic cigarettes [email or web address] Information not available 06/13/2023 What is your exercise level? Occasional [email or web address] Information not available 11/19/2022 Mental Status Question Answer Note LastModified by Organization D etails LastModified Time Do you feel stressed (tense, restless, nervous, or anxious, or unable to sleep at night)? [id number] [email or web address] Information not available 11/19/2022 Family History Relationship Description Onset Age of this Age Resolved Age Notes LastModified by Organization Details LastModified Time Unspecified Relation Family history unknown [email or web address] Not available 11/19 12:27:41 Maternal Grandmother Diabetes mellitus Not available 11/20 20:31:00 Maternal Grandmother Hypertensive disorder [email or web address] Not available 11/20 20:31:21 Maternal Grandmother Disorder of thyroid gland [email or web address] Not available 11/20 20:31:46 Father Hypertensive disorder [email or web address] Not available 11/20 20:31:21 Paternal Grandfather Hypertensive disorder [email or web address] Not available 11/20 20:31:21 Paternal Aunt Malignant neoplasm of lung [email or web address] Not available 11/20 20:31:33 Medical History Condition Response Allergies (Food, seasonal, environmental ) N Other N Drug/Latex Allergies/Reactions N Blood Transfusion N Breast Cancer N Dermatologic Disorders N Lung Disease N Defects or Inherited Disease N Breast Problem N Gestational Diabetes N Hematologic disorders N Anesthesia Complications N History of STI Y Deep Vein Thrombosis N Polycystic ovary syndrome N Anxiety Disorder N Autoimmune disease N Arthritis N Polyps N Infertility N Acid Reflux (GERD) N History of abnormal pap N Cancer N Varicosities N Stroke N Neurologic/Epilepsy N Endometriosis N High Cholesterol N Fibromyalgia N Headaches N Kidney Disease N Heart Problems N Thyroid Problems Y Kidney or Bladder Problems N GI Problems N Eating Disorder N Anemia Y Art (IVF or FET) N Psychiatric Illness N Ovarian Cancer N Diabetes N Pulmonary (TB, Asthma) N Hepatitis/Liver Disease N No Past Medical History N Eczema N Urinary Tract Infection N Abuse/Domestic Violence N Asthma N Trauma/Violence N Depression/ depression Y Heart Disease N Pre-Eclampsia N Hypertension N Osteoporosis N Thrombophilias N Gynecological History Statement/Question Response Date of Last Mammogram Date of LMP 06/10/2024 On BCP's at Conception? N N Was last menstrual period normal Y STIs/STDs Y HPV Vaccine Y Duration of Flow (days) 4 Current Control Method Breastfeedi ng/SPARKS Age at First Child 22 Are cycles usually normal Y Frequency of Cycle (Q days) 26 Sexually Active? Y Menses Monthly N Date of DEXA bone scan Age of first menstrual cycle 10 Date of Last Pap Smear 11/18/2023 Sexual Problems? Y LMP Approximate N Obstetrics History GPAL:G 3 P 3 0 0 3 Type Value Full Term 3 Living 3 Total 3 Past Encounters Encounter ID Performer Location Encounter Start Date Encounter Closed Date Diagnosis/Indication Diagnosis SNOMED-CT Code Diagnosis ICD10 Code Diagnosis Note [id number] Linnea Gill MD [place] [address] [address] 11/19/2022 11:05:26 11/20/2022 03:50:38 [id number] [facility] [address] [address] 11/19/2022 11:05:39 11/19/2022 12:49:33 Gynecologic examination 70979002 Z01.419 test positive 582490199 Z32.01 Risk factors addressed: Tobacco Cessation, Safe Sexual Practices, environmen zoie, work hazards, travel restrictio ns, seat belt use. Uses vape. Planning to wean/disco ntinue.Eat a health well balanced diet, avoid alcohol, tobacco, and street drugs.Enga ge in daily low impact exercise, avoid temperatur e extremes, and cat, rodent, and bird feces.Avoi d travel to areas where zika virus is a concern.Of fered cf/sma/nip t. Considerin g but unsure. Will let us know at 12 week visit. Handouts given and discussed with patient.Ch ildbirth classes recommende d.New OB sheet given.If previous , counseling .Pt verbalizes that she understand s the importance of above instructio ns.All questions were answered.P atient reminded to have annual well woman examinatio n and address [facility] . [id number] [facility] [address] [address] 12/12/2022 09:09:46 12/12/2022 10:22:00 Routine care 045978785 Z34.91 [id number] Ronen Livingston MD [place] [address] [address] 12/12/2022 09:10:08 12/12/2022 10:23:25 screening 908336280 Z36.82 [id number] eSema Casas [facility] [address],[place] [address] 01/09/2023 10:23:33 01/09/2023 13:09:40 Routine care 583860247 Z34.91 [id number] Ronen Livingston MD [place] [address],[place] [address] 01/30/2023 11:14:02 01/30/2023 12:35:22 screening for malformation 012072183 Z36.3 [id number] Seema Casas [place] [address] [address] 01/30/2023 11:14:26 01/30/2023 17:28:42 Routine care 290208181 Z34.91 [id number] Elisa Robertson [facility] [address],[place] [address] 02/28/2023 10:26:09 02/28/2023 11:00:16 Routine care 659040317 Z34.92 Family his tory of blood coagulation disorder 7260405061 87066 Z83.2 [id number] Seema Casas [facility] [address],[place] [address] 03/20/2023 12:33:21 03/22/2023 15:09:03 Depressive disorder 66218847 F32.A See flowsheet. [id number] Ronen Livingston MD [place] [address],[place] [address] 05/26/2023 14:57:22 05/26/2023 15:56:04 Routine care 413042217 Z34.83 [id number] Ronen Livingston MD [place] [address],[place] [address] 05/27/2023 11:46:41 05/27/2023 12:13:12 Gestational proteinuria 92063030 O12.13 Pt here for BP check and PIH labs due to proteinuri a. BP 139/82. Pt to lab for PIH labs and instructed on 24 hour urine collection . Pt verbalized understand ing and was provided with 24 hour urine collection supplies. Pt will return 24 hour urine Friday when she comes for 1hr gtt. Leonela felton, RN [id number] Linnea Gill MD [place] [address],[place] [address] 05/30/2023 09:18:50 05/30/2023 10:58:19 Small for gestational age fetus 777533793 O36.5930 O26.843 Z3A.37 [id number] Linnea Gill MD [place] [address],[place] [address] 05/30/2023 10:38:25 05/30/2023 11:25:31 growth restriction 10627587 O36.5999 [id number] Linnea Gill MD [place] [address],[place] [address] 06/04/2023 11:12:54 06/12/2023 15:23:10 Past history of pre-eclampsia 1611972799 76020 Z87.59 Elevated blood-pressure reading without diagnosis of hypertension 846391809 R03.0 [id number] MD Riley Melendez [address],[place] [address] 06/13/2023 16:02:52 06/16/2023 15:25:14 state 67628124 Z39.2 [id number] MD Riley Melendez [address] [address] 06/23/2023 12:07:46 06/23/2023 12:40:46 care 054133566 Z39.2 [id number] , [facility] [address] [address] 11/18/2023 10:35:58 11/18/2023 11:38:43 Gynecologic examination 19014494 Z01.419 Take Calcium with Vitamin D 1200mg daily if not receiving in daily diet. It is strongly advised to have an annual flu shot and up can obtain at most pharmacies . If you have not had a TDap shot in the last 10 years you should obtain one as well. Discussed with patient & provided with informatio n regarding Gardisil vaccine to prevent the 4 strains for HPV that cause cervical cancer if under age 26. Encourage safe sexual practices, to use condoms and limit partners if not already in a monogamous relationsh ip. Do monthly self breast exams. Have mammogram yearly or every other year depending on family history. BRCA testing is now available for patients with strong genetic history of female cancer. If interested contact the office. Engage in daily exercise of low impact aerobic exercise 45-60 minutes 4-5 times weekly. Avoid tobacco and illicit drugs as well as using moderation with alcohol intake less than 1-2 8 oz beverages daily. This lifestyle behavior pattern will lead to less health conditions and longer life span. If BMI greater than 25 weight watchers or dietary consult advised. Patient received above instructio ns, and questions have been answered. If you have any questions please call or respond to this email. Patient was made aware of the patient portal and may obtain a paper copy of today's plan if desired. Pap sent STD Screen declined Genetic Screen discussed Colon Screen na Dexa Screen na Routine Labs na Generalize d anxiety disorder 23172168 F41.1 Today we discussed increasing the dosage of sertraline to further manage her anxiety which is helping her cope with life; feeling anxiety is creeping back in; especially at night with racing thoughts.G AD-7 updatedNeg depression Neg suicidal ideations or thoughts of self harm.F/U 8wk tele-visit med check unless otherwise indicated. Counseled on r/b's, most common side effects of this therapy with instructio ns to stop medication with any significan t abnormal change in mood especially with thoughts of suicide/se lf-harm/figueredo rm to others. Understand ing verbalized . [id number] [facility] [address] [address] 01/13/2024 09:27:19 01/13/2024 10:09:31 Generalized anxiety disorder 39387166 F41.1 Patient is here today for a medicaton check of sertraline 100mg. She voices goals of therapy have been met with use of this therapy. She denies neg side effects. She is eating, drinking, sleeping well; moods are stable. HERMANN scores improved. Wishes to continue this method of therapy. Appropriat e to continue this medication . Total time of virtual/te le-visit was approx 21 mins with >50% consisting of counseling , education of patient's plan of care. [id number] Ronen Livingston MD [place] [address] [address] 06/24/2024 09:37:19 06/24/2024 10:54:46 Contraception care management 679939830 Z30.9 This patient is a 28-year-ol d female presents for contracept ion. She is undecided as to what she should start. Talked about all her options. We talked about control pills, patches, vaginal ring. We talked about progestero ne containing and copper IUD. We talked about progestero ne only options such as Depo-Prove ra shot, progestero ne only pills, Nexplanon. We talked about the risks benefits and pros and cons of each method. Ultimately she decided on depo. She was given instructio ns on starting this method. She was informed of side effects. She was given precaution s on failure and special circumstan tank. She was quoted failure rates for all of the methods we discussed. Spent more than 30 minutes on this patient's care. [id number] Ronen Livingston MD [place] [address],[place] [address] 07/02/2024 12:16:28 07/02/2024 13:01:23 Acute urinary tract infection [id number] N39.0 [id number] BLAINE Maldonado [place] [address],[place] [address] 07/07/2024 14:26:59 07/07/2024 14:43:59 Contraception care management [id number] Z30.9 Health Concerns Section Related Observation LastModified by Organization Detai ls LastModified Time None Recorded Concern Status LastModified by Organization Details LastModified Time None Recorded Advance Directives Directive None Recorded Payers Insurance Date Sequence Insurance Name Policy Number Policy Horn Covered Member ID Horn Member ID Guarantor Name 12/11/2024 1 [facility] ON OR AFTER 05/31/21 (MEDICAID REPLACEMENT - HMO) Ev Logan [id number] Ev Logan Notes Date Note Type Note Provider Name and Address Organization Details Recorded Time 11/18/2023 text/html Annual GYNReport ed bypatient.History:no gynecologic complaints Menstrual cycle:Normal menses (Amenorrheic due to breast feeding exclusively.) Urinary symptoms:No hematuria; No incontinence Vulva:No genital lesion Vagina:Normal vaginal discharge Breast:No breast pain; No breast lump; No nipple discharge Current Contraception:Satisf ied with current contraception; Condoms Sexual complaints:No sexual complaints; No pain during intercourse; Normal libido Menopausal Symptoms:No menopausal symptoms; Normal vaginal lubrication Psychological symptoms:No depression;Anxiety Preventive measures:Encourage self breast examination; Encourage regular exercise; Encourage no tobacco use; Encourage regular mammograms starting age 40; Followed with yearly pap smears [facility]- [address], [place], [address], [facility] 11/18/2023 11:34:35 01/13/2024 text/html Televisit for Medication check of Sertraline for HERMANN. Telemedicine Consent: Patient Verification and Telemedicine Based ConsentI am proceeding with this evalatuion at the direct request of the patient. I have verified this is the correct person; and have obtained VERBAL CONSENT from the patient/surrogate to perform this voluntary TELEMEDICINE ENCOUNTER EVALUATION. I have EXPLAINED risks (including potential loss of confidentiality), benefits, alernatives; adn the potential need for a subsequent face to face care. Patient/Surrogate understands that there is a risk of medical inaccuracies given that our recommendations will be made based on reported data. Knowing that there is a risk that this information is not reported accurately, and that the telemedicine audio, or data feed may be incomplete; the patient agrees to proceed providing recommendations only. The patient/surrogate has been notified that OTHER healthcare professionals (including students/residents/a me technical personnel) may be involvoed in this audio evaluation. All laws concerning confidentiality and patient access to medical records and copies of medical records apply to telemedicine. I have reviewed this above verification and consent paragraph with the patient/surrogate. PATIENT LOCATION: Workplace, [facility] encounter was perfromed using: Audio/visual --YESAll aspects of patients medical history were reviewed and updated as documented in [place] at this time. Delores Plaza [facility] [address], [place], [address], [facility] 01/13/2024 10:05:48 06/24/2024 text/html This patient is a 28-year-old female presents for contraception. She is undecided as to what she should start. Talked about all her options. We talked about control pills, patches, vaginal ring. We talked about progesterone containing and copper IUD. We talked about progesterone only options such as Depo-Provera shot, progesterone only pills, Nexplanon. We talked about the risks benefits and pros and cons of each method. Ultimately she decided on depo. She was given instructions on starting this method. She was informed of side effects. She was given precautions on failure and special circumstances. She was quoted failure rates for all of the methods we discussed. Spent more than 30 minutes on this patient's care. Ronen Livingston MD [address], [place], [address], [facility] 06/24/2024 10:29:59 OBGyn Episode Ob Episode Information Episode Created Date Number of Fetuses Patient Bloodtype Patient rh Status Prepregnancy Weight lbs Domestic Partner Domestic Partner Phone Father Name Humanities Division Chair Status 12/12/19 23 1 A Positive 123 ced Kueper CLOSED Fetus Data First Name Last Name Admitted to NICU Weight (g) Sex Living Outcome Pediatric Complications Fetus ID Race Codes Race Delivery Type 2125.21 25 F true Full Term [id number] Vaginal Delivery Problems Problem Notes PNL NL, Problem Name Start Date End Date Resolution Snomed Code Not e growth restriction 05/30/2023 [id number] Depressive disorder [id number] S/O on 03-18-23. History of depression. Started zoloft. Danny Calculation Initial Danny Date Initial Exam Date Initial Exam Provider Initial Ultrasound Date Last Menstrual Period Date Ultra Sound Weeks Gestation 06/15/2023 11/19/2022 11/19/2022 09/12/2022 10 Eighteen To Twenty Week Danny Update Ultra Sound Date Fundal Height At Umbil Quickening Date Ultra Sound Latest Weeks Gestation Final Danny Confirmed By Final Danny Confirmed Date Final Danny Date Ultra Sound Latest Days Gestation 0 06/19/20 23 0 Pre- Flowsheet Flowsheet Date 12/12/2022 Toney Score Blood Edema Fundus Height Fundus Units Glucose Ketones Leukocytes Nitrite Labor Signs Protein Cervic Dilation Cervic Effacement Cervic Station neg none none trace Type Weight in lbs Pre/Post Dialysis Refused Weight 128.665542635979 BP Diastolic BP Location Tested BP Systolic BP Type 70 107 Fetus Heart Rate Present Fetus Movement A No Comments 27 y/o here for routine care. History unremarkable with exception of abruption in 2nd which remained stable throughout. x 2. Has had covid vaccine. Recommended flu shot. Fuentes folder given and discussed. Ultrasound to follow visit. Bloodwork today including NIPT, CF, SMA. Flowsheet Date 12/12/2022 Toney Score Blood Edema Fundus Height Fundus Units Glucose Ketones Leukocytes Nitrite Labor Signs Protein Cervic Dilation Cervic Effacement Cervic Station Type Weight in lbs Pre/Post Dialysis Refused BP Diastolic BP Location Tested BP Systolic BP Type Fetus Heart Rate Present Fetus Movement Comments Flowsheet Date 01/09/2023 Toney Score Blood Edema Fundus Height Fundus Units Glucose Ketones Leukocytes Nitrite Labor Signs Protein Cervic Dilation Cervic Effacement Cervic Station neg none none trace Type Weight in lbs Pre/Post Dialysis Refused Weight 134.703300782003 BP Diastolic BP Location Tested BP Systolic BP Type 71 117 Fetus Heart Rate Present A 146 Fetus Movement A Yes Comments Doing well. Occasional nause a. Discussed AFP. Will decide by visit in 3 weeks. Encouraged to meet other providers. Will schedule 20 week visit and baseline anatomy in 3 weeks. Flowsheet Date 01/30/2023 Toney Score Blood Edema Fundus Height Fundus Units Glucose Ketones Leukocytes Nitrite Labor Signs Protein Cervic Dilation Cervic Effacement Cervic Station Type Weight in lbs Pre/Post Dialysis Refused BP Diastolic BP Location Tested BP Systolic BP Type Fetus Heart Rate Present Fetus Movement Comments Flowsheet Date 01/30/2023 Toney Score Blood Edema Fundus Height Fundus Units Glucose Ketones Leukocytes Nitrite Labor Signs Protein Cervic Dilation Cervic Effacement Cervic Station neg none none trace Type Weight in lbs Pre/Post Dialysis Refused Weight 134.610951937547 BP Diastolic BP Location Tested BP Systolic BP Type 64 107 Fetus Heart Rate Present Fetus Movement A Yes Comments Doing well. Occasional nause a. Tolerable. Declined AFP. 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 Pt has a history and feels like she needs to restart medication. Discussed risks, benefits, and precautions. Offered emotional support and asked patient to call us if we can do anything for her. Flowsheet Date 05/26/2023 Toney Score Blood Edema Fundus Height Fundus Units Glucose Ketones Leukocytes Nitrite Labor Signs Protein Cervic Dilation Cervic Effacement Cervic Station 36 none 2+ Type Weight in lbs Pre/Post Dialysis Refused Weight 152.770595064534 BP Diastolic BP Location Tested BP Systolic BP Type 81 R arm 137 sitting Fetus Heart Rate Present A 154 Fetus Movement A Yes Comments pt. has not been seen since end march, still needs 28 week labs. small for gestational age-growth ultrasound next available. Doing glucose tolerance testing 4 days Flowsheet Date 05/27/2023 Toney Score Blood Edema Fundus Height Fundus Units Glucose Ketones Leukocytes Nitrite Labor Signs Protein Cervic Dilation Cervic Effacement Cervic Station Type Weight in lbs Pre/Post Dialysis Refused BP Diastolic BP Location Tested BP Systolic BP Type 82 139 Fetus Heart Rate Present Fetus Movement Comments Pt here for BP check and PIH labs due to proteinuria. BP 139/82. Pt to lab for PIH labs and instructed on 24 hour urine collection. Pt verbalized understanding and was provided with 24 hour urine collection supplies. Pt will return 24 hour urine Friday when she comes for 1hr gtt. Leonela Giles RN Flowsheet Date 05/30/2023 Toney Score Blood Edema Fundus Height Fundus Units Glucose Ketones Leukocytes Nitrite Labor Signs Protein Cervic Dilation Cervic Effacement Cervic Station 1+ Type Weight in lbs Pre/Post Dialysis Refused BP Diastolic BP Location Tested BP Systolic BP Type 80 137 Fetus Heart Rate Present A 140 Fetus Movement A Yes Comments Here for US- IUGR 8% with AC 1%. Normal umbilical dopplers, BPP 8/8. Normal PIH labs on Fri, was returning 24 hour urine today. Will send to L and D for serial BPs and to get faster results on 24 hour urine given IUGR. If not delivered, will get weekly 10pt testing. Also did 28w labs today since never did them. Discussed all of this with pt, need for delivery if PreE, if not, need for close monitoring of baby with growth restriction and delivery by 39w. To L and D now. Report called. Flowsheet Date 05/30/2023 Toney Score Blood Edema Fundus Height Fundus Units Glucose Ketones Leukocytes Nitrite Labor Signs Protein Cervic Dilation Cervic Effacement Cervic Station Type Weight in lbs Pre/Post Dialysis Refused BP Diastolic BP Location Tested BP Systolic BP Type Fetus Heart Rate Present Fetus Movement Comments Flowsheet Date 06/04/2023 Toney Score Blood Edema Fundus Height Fundus Units Glucose Ketones Leukocytes Nitrite Labor Signs Protein Cervic Dilation Cervic Effacement Cervic Station Type Weight in lbs Pre/Post Dialysis Refused Weight 140.193806111697 BP Diastolic BP Location Tested BP Systolic BP Type 86 156 78 148 Fetus Heart Rate Present Fetus Movement Comments Flowsheet Date 06/13/2023 Toney Score Blood Edema Fundus Height Fundus Units Glucose Ketones Leukocytes Nitrite Labor Signs Protein Cervic Dilation Cervic Effacement Cervic Station Type Weight in lbs Pre/Post Dialysis Refused BP Diastolic BP Location Tested BP Systolic BP Type 89 156 80 132 Fetus Heart Rate Present Fetus Movement Comments Menstrual History Last Menstrual Date Menses Monthly On Bcp Conception Prior Menses Frequency Hcg Plus Date Menarche Onset Age 1009/12/2022 true Genetic Screening And Infection History Question Response Note Mental Retardation/Autism false Patient's Age Will Be 35 Years Or Older At Estim ated Date of Delivery false Thalassemia (Khmer, Swedish, Mediterranean, Or Background): MCV < 80 false Neural Tube Defect (Meningomyelocele, Spina Bifi da, Or Anencephaly) false Congenital Heart Defect false Down Syndrome false Jeromy-Sachs (eg, Bahai, Cajun, Syrian-Uzbek) f alse Samanta Disease false Sickle Cell Disease Or Trait () false Hemophilia Or Other Blood Disorders false Muscular Dystrophy false Cystic Fibrosis false Srinivasan's Chorea false Intellectual Disability/Autism false If Yes, Was Person Tested For Fragile X? false Other Inherited Genetic Or Chromosomal Disorder false Maternal Metabolic Disorder (eg, Type 1 Diabetes , PKU) false Patient Or Baby's Father Had A Child With Defects Not Listed Above false Recurrent Loss, Or A Stillbirth false Medications (including Suppl ements, Vitamins, Herbs, OTC Drugs), Illicit/Recreational Drugs, Alcohol false If Yes, Agent(s) And Strength/Dosage false Any Other Genetic History false Live With Someone With TB Or Exposed To TB false Patient Or Partner Has History Of Genital Herpes false Rash Or Viral Illness Since Last Menstrual Perio d false History Of STD, Gonorrhea, Chlamydia, HPV, Syphi lis false Other Infection History false History of HIV false History of Hepatitis false Prior GBS-infected child false Hemoglobinopathy Or Carrier false Other Structural Defect false Recent Travel History Outside of Country false Delivery Information Delivery Date Delivery Type Labor Anesthesia Weeks Gestation Incision Type Labor Labor Length Hrs Delivered By Post Complications Tubal Sterilization Discharge Date Comments 3 Induce d Regional-Ep idural 37.2 false Linnea Gill MD IUGR & Pre-Eclam psia w/o severe features Discharge Information Feeding Method Contraceptive Method Maternal HG B and HCT Levels Ob Episode Information Episode Created Date Number of Fetuses Patient Bloodtype Patient rh Status Prepregnancy Weight lbs Domestic Partner Domestic Partner Phone Father Name Humanities Division Chair Status 11/20/20 22 1 CLOSED Fetus Data First Name Last Name Admitted to NICU Weight (g) Sex Living Outcome Pediatric Complications Fetus ID Race Codes Race Delivery Type 3401.94 F Full Term [id number] Vaginal Delivery Danny Calculation Initial Danny Date Initial Exam Date Initial Exam Provider Initial Ultrasound Date Last Menstrual Period Date Ultra Sound Weeks Gestation 0 Eighteen To Twenty Week Danny Update Ultra Sound Date Fundal Height At Umbil Quickening Date Ultra Sound Latest Weeks Gestation Final Danny Confirmed By Final Danny Confirmed Date Final Danny Date Ultra Sound Latest Days Gestation 0 0 Menstrual History Last Menstrual Date Menses Monthly On Bcp Conception Prior Menses Frequency Hcg Plus Date Menarche Onset Age Delivery Information Delivery Date Delivery Type Labor Anesthesia Weeks Gestation Incision Type Labor Labor Length Hrs Delivered By Post Complications Tubal Sterilization Discharge Date Comments 8 39 Discharge Information Feeding Method Contraceptive Method Maternal HG B and HCT Levels Ob Episode Information Episode Created Date Number of Fetuses Patient Bloodtype Patient rh Status Prepregnancy Weight lbs Domestic Partner Domestic Partner Phone Father Name Humanities Division Chair Status 11/20/20 22 1 CLOSED Fetus Data First Name Last Name Admitted to NICU Weight (g) Sex Living Outcome Pediatric Complications Fetus ID Race Codes Race Delivery Type 3430.06 [id number] F Full Term [id number] Vaginal Delivery Danny Calculation Initial Danny Date Initial Exam Date Initial Exam Provider Initial Ultrasound Date Last Menstrual Period Date Ultra Sound Weeks Gestation 0 Eighteen To Twenty Week Danny Update Ultra Sound Date Fundal Height At Umbil Quickening Date Ultra Sound Latest Weeks Gestation Final Danny Confirmed By Final Danny Confirmed Date Final Danny Date Ultra Sound Latest Days Gestation 0 0 Menstrual History Last Menstrual Date Menses Monthly On Bcp Conception Prior Menses Frequency Hcg Plus Date Menarche Onset Age Delivery Information Delivery Date Delivery Type Labor Anesthesia Weeks Gestation Incision Type Labor Labor Length Hrs Delivered By Post Complications Tubal Sterilization Discharge Date Comments 9 39 placenta abruption Discharge Information Feeding Method Contraceptive Method Maternal HG B and HCT Levels
[2025-05-31 11:12] LABS: BEDSIDEPREGUCG Negative (Negative)
[2025-05-31 11:25] LABS: Hematocrit 42.8 % (37.0-47.0); Hemoglobin 13.9 g/dL (12.0-15.0); Immature Granulocyte Percent A 0.4 % (0-0.5); Lymphocytes Absolute Auto 1.50 K/mm3 (0.9-3.2); Mean Corpuscular HGB Conc 32.5 g/dl (32-36); Mean Corpuscular Hemoglobin 32.6 pg (26-34); Mean Corpuscular Volume 100.2 fl (80-100); Nucleated Red Blood Cells Absolute Auto 0.000 K/mm3 (0.0-0.012); Nucleated Red Blood Cells Perc 0.0 % (0.0-0.2); Platelet Count Result 158 k/mm3 (150-375); Red Blood Count 4.27 M/mm3 (4.2-5.4); White Blood Count 8.4 K/mm3 (4.5-10.0)
[2025-05-31 11:29] LABS: Add Urine Microscopic? YES; Appearance Urine Cloudy (Clear); Glucose Urine UA Negative (Negative); Leukocyte Esterase Ur Negative LEU/UL (Negative); Nitrate Urine Positive (Negative); Non Pathogenic Casts 0-2; Specific Grav Ur 1.022 (1.001-1.035)
[2025-05-31 11:38] LABS: Alanine Aminotransferase 16 U/L (6-35); Albumin Level 4.2 g/dL (3.5-5.1); Alkaline Phosphatase 34 U/L (38-126); Anion Gap 6 mmol/L (4-12); Aspartate Amino Transferase 25 U/L (14-36); Bilirubin,Total 0.5 mg/dL (0.2-1.3); Blood Urea Nitrogen 16 mg/dL (7-17); Calcium 9.0 mg/dL (8.4-10.2); Carbon Dioxide 24 mmol/L (22-30); Chloride 108 mmol/L (98-107); Estimated CRCL calculation 99 ml/min; Estimated Glomerular Filt Rate > 60; Glucose 93 mg/dL (65-110); Lipase 118 U/L (23-300); Potassium 3.9 mmol/L (3.4-5.0); Sodium 138 mmol/L (137-145); Total Protein 6.8 g/dL (6.3-8.2)
--- NOTE | 2025-05-31 12:05 | ED_ITS ---
HPI - Abdominal Pain General Chief Complaint: Abdominal Pain Stated Complaint: abd pain that radiates into the back Time Seen by Provider: 05/31/25 10:59 Source: patient Mode of arrival: ambulatory Limitations: no limitations History of Present Illness HPI narrative: Patient is a 29 y/o female who presents to the ED with c/o lower abdominal pain. Patient reports around 9am this morning she had a sudden onset of sharp lower abdominal pain. States pain progressively worsened over approximately 45 minutes. Slightly radiate to her back. She states the pain was so be severe that it caused her to become dizzy and nearly passed out. Pain resolved after approximately 45 minutes. She did not take anything for the pain. She denies current pain. Denies history of similar pain. Denies dysuria, hematuria, N/V/D, constipation, fevers. Denies history of ovarian cyst. Is currently on her menstrual cycle. Has been normal. Related Data Home Medications ?Medication ?Instructions ?Recorded ?Confirmed ?Last Taken ?Type Classic 05/30/23 05/29/23 07:00 History Allergies Allergy/AdvReac Type Severity Reaction Status Date / Time No Known Allergies Allergy Mild Verified 05/31/25 10:56 Review of Systems 2 Review of Systems: All systems reviewed & are unremarkable except as noted in HPI. All systems reviewed & are unremarkable except as noted in HPI and below PMFSH Past Medical History Medical History Syncope chronic history Surgical History Surgical History No pertinent past surgical history Family History Family History Mother Patient's mother is in good health Father Patient's father is in good health Social History Social History Years smoked: 10 Smoking status: Current every day smoker Tobacco type: cigarettes Second hand tobacco smoke exposure: No Alcohol intake: never Substance use: current Lack of Transportation: No Lack of Food: Never True Current Housing: I Have Housing Concerned About Future Housing: YES Difficulty Paying Gas/Electric Bills: No Difficulty Paying for Meds: No Currently Unemployed: No Education: Associate Degree Difficulty w/ Childcare or Family Care: No Gender identity (if verbalized by the patient): Female Spiritual care concerns: No Exam 2 Narrative: GENERAL: Well appearing, thin with BMI of 18.7, non-toxic, in no acute distress. HEAD: Normocephalic, atraumatic. RESPIRATORY: Airway patent, respirations nonlabored. Clear to auscultation bilaterally, no rales, rhonchi, wheezing. CARDIOVASCULAR: Regular rate and rhythm without murmurs, rubs, or gallops. ABDOMINAL: Soft, minimal discomfort throughout lower abdomen, no rebound, nondistended. Normoactive BS. MUSCULOSKELETAL: Moves all extremities. No gross deformities. SKIN: Warm, dry, normal color. NEURO: A&O X3. Speech clear. Cranial nerves II-XII grossly intact. Steady gait. No ataxic movements. PSYCHIATRIC: Appropriate mood and affect. Normal interaction. Course Vital Signs Vital signs: Vital Signs Temperature 97.8 F 05/31/25 10:26 Pulse Rate 80 05/31/25 10:26 Respiratory Rate 16 05/31/25 10:26 Blood Pressure 118/75 05/31/25 10:26 Pulse Oximetry 96 05/31/25 10:26 Oxygen Delivery Room Air 05/31/25 10:26 Temperature 97.8 F 05/31/25 10:26 Pulse Rate 80 05/31/25 10:26 Respiratory Rate 16 05/31/25 10:26 Blood Pressure 118/75 05/31/25 10:26 Pulse Oximetry 96 05/31/25 10:26 Oxygen Delivery Room Air 05/31/25 10:26 MDM - Abdominal Pain MDM Narrative Medical decision making narrative: Patient presented to ED with episode of sharp stabbing lower abdominal pain that began this morning. Currently resolved. Denies history of similar pain. Vital signs are stable upon arrival. Patient is afebrile. Cbc without leukocytosis or anemia. CMP is unremarkable. Stable electrolytes and kidney function. Urine with possible infection, positive nitrate, 6-10 WBC. 4+ urine bacteria. Sent for culture. Will treat. EKG without concerning ischemic changes. CT scan of abdomen/pelvis was obtained: IMPRESSION: 1. Likely transient left lower quadrant small bowel intussusception with no bowel obstruction Will discuss with General surgery. Discussed case with Dr. Ortega, advised if pain/sx's resolved, no indication for intervention at this time. Advised if pain becomes recurrent/frequent, to return, may need surgical management. Discussed this with patient. Otherwise safe for D/C home. Patient remains asymptomatic. Has not had any further pain. She is in agreement with plan. Discharged in stable condition. Medical Records Attestation: I reviewed the patient's medical records. Lab Data Attestation: I reviewed the patient's lab results. 05/31/25 11:06 05/31/25 11:06 Labs: Lab Results 05/31/25 05/31/25 Range/Units 11:06 11:11 WBC 8.4 (4.5-10.0) K/mm3 RBC 4.27 (4.2-5.4) M/mm3 Hgb 13.9 (12.0-15.0) g/dL Hct 42.8 (37.0-47.0) % MCV 100.2 H (80-100) fl MCH 32.6 (26-34) pg MCHC 32.5 (32-36) g/dl RDW 14.4 (11.5-14.5) % Plt Count 158 (150-375) k/mm3 MPV 10.9 H (7.4-10.4) fl Immature Gran % (Auto) 0.4 (0-0.5) % Neut % (Auto) 75.7 H (45.5-73.1) % Lymph % (Auto) 17.8 L (18.3-44.2) % [place] % (Auto) 5.2 (2.6-8.5) % Eos % (Auto) 0.5 (0-4.4) % Baso % (Auto) 0.4 (0.2-1.2) % Lymph # (Auto) 1.50 (0.9-3.2) K/mm3 [place] # (Auto) 0.4 (0.1-0.6) K/mm3 Eos # (Auto) 0.0 (0-0.3) K/mm3 Baso # (Auto) 0.0 (0.0-0.1) K/mm3 Abs Immat Gran (auto) 0.03 (0.00-0.031) K/mm3 Absolute Neuts (auto) 6.4 (1.3-6.7) K/mm3 Absolute Nucleated RBC 0.000 (0.0-0.012) K/mm3 Nucleated RBC % 0.0 (0.0-0.2) % Sodium 138 (137-145) mmol/L Potassium 3.9 (3.4-5.0) mmol/L Chloride 108 H (98-107) mmol/L Carbon Dioxide 24 (22-30) mmol/L Anion Gap 6 (4-12) mmol/L BUN 16 (7-17) mg/dL Creatinine 0.54 L (0.7-1.0) mg/dL Estim Creat Clear Calc 99 ml/min Estimated GFR > 60 (59 - ) Glucose 93 (65-110) mg/dL Calcium 9.0 (8.4-10.2) mg/dL Total Bilirubin 0.5 (0.2-1.3) mg/dL AST 25 (14-36) U/L ALT 16 (6-35) U/L Alkaline Phosphatase 34 L (38-126) U/L Total Protein 6.8 (6.3-8.2) g/dL Albumin 4.2 (3.5-5.1) g/dL Lipase 118 (23-300) U/L Urine Color Yellow (Yellow) Urine Appearance Cloudy H (Clear) Urine pH 6.5 (5.0-9.0) Ur Specific [place] 1.022 (1.001-1.035) Urine Protein 1+ H (Negative) mg/dL Urine Glucose (UA) Negative (Negative) mg/dL Urine Ketones Negative (Negative) mg/dL Ur Blood (Man) 3+ H (Negative) Urine Nitrate Positive H (Negative) Urine Bilirubin Negative (Negative) Urine Urobilinogen 0.2 (<2.0) mg/dL Leukocyte Esterase Rfl Negative (Negative) CÉSAR/UL Urine RBC 6-10 H (0-2) /hpf Urine WBC 6-10 H (0-3) /hpf Ur Squamous Epith Cells Occasional (Few) /hpf Urine Bacteria 4+ /hpf Urine Casts 0-2 POC Urine HCG, Qual Negative (Negative) Imaging Data Attestation: I personally reviewed and interpreted this imaging study as follows: Radiologist's impression: ITS Impressions Abdomen/Pelvis CT 05/31/25 12:50 IMPRESSION: 1. Likely transient left lower quadrant small bowel intussusception with no bowel obstruction. No other acute intra-abdominal/pelvic process. ECG Data EKG #1: Attestation: I personally reviewed and interpreted this ECG as follows: ECG completion date: 05/31/25 ECG completion time: 12:57 normal rate (67), sinus rhythm and no ST changes Discharge Plan Discharge Clinical Impression: Intussusception UTI (urinary tract infection) Qualifiers: Urinary tract infection type: acute cystitis Hematuria presence: with hematuria Qualified Code(s): N30.01 - Acute cystitis with hematuria Patient Disposition: Home Condition: Stable Instructions: Antibiotic Form, Urinary Tract Infection in Women (ED), Intussusception in Children (ED) Additional Instructions: Take antibiotics as prescribed for urinary tract infection. Continue to monitor symptoms. Return to the ED if you experience worsening or severe pain, persistent pain, unable to keep down food or drink, fevers, rectal bleeding, dark black stools, or any other symptoms of concern. Patient Language: Upper Sorbian Prescriptions: New cephalexin 500 mg capsule 500 mg PO Q6H 7 Days Qty: 28 0RF No Action docusate sodium 100 mg Capsule 100 mg PO BID PRN (Reason: Constipation) 0RF Classic sertraline [Zoloft] 50 mg Tablet 50 mg PO QAM Qty: 30 3RF Follow-up/Referrals: PHYSICIAN,PUBLIC WORKS SUPERVISOR [Non-Staff] - Time of Disposition: 14:22
--- NOTE | 2025-05-31 12:06 | ECG_ITS ---
Test Date: 2025-05-31 12:57:24 Measurements Intervals [place] Rate: 67 P: 68 NC: 194 QRS: 83 QRSD: 103 T: 72 QT: 419 QTc: 445 Interpretive Statements SINUS RHYTHM POSSIBLE RIGHT VENTRICULAR CONDUCTION DELAY [RSR (QR) IN V1/V2] No previous ECG available for comparison Electronically Signed On 05-31-2025 18:08:11 CDT by Lonnie Jacinto
--- OUTSIDE RECORDS SUMMARY | 2025-05-31 12:19 | XMS_ITS | Clinical Summary ---
Author Organization [facility] Address [address] [place] [address] Care Team Providers Care Coconut Boiler Name Role Phone Carolynsamm Jesse Adis DO Primary Care Provider [phone] Source Comments [facility],non-owned Affiliates and Associated Physician Practices is amultiple site organization consisting of ambulatory clinics and hospital sitesin [place], [place], [place] and [place]. This disclosure is being madepursuant to the Care Everywhere program and may not contain all information available regarding this patient. Last updated 18.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 Gender Identity Not on file Sexual Orientation Not on file Plan of Treatment Health Maintenance Due Date Last Done Comments HIV SCREENING 2008 HEPATITIS C SCREENING 11/25/2011 DTAP/TDAP/TD VACCINES (1 - Tdap) 2012 HEPATITIS B VACCINE (1 of 3 - 19+ 3-dose series) 2012 PAP SMEAR 2014 COVID-19 VACCINE ( - 2023-2 5 season) 2024 DEPRESSION SCREENING 12/01/2024 INFLUENZA VACCINE (Season Ended) 2025 ZOSTER VACCINE (1 of 2) 2043 HIB VACCINE Aged Out No longer eligi ble based on patient's age to complete this topic HPV VACCINE Aged Out No longer eligi ble based on patient's age to complete this topic MENINGOCOCCAL (Group B) VACC INE SHARED DECISION-MAKING Aged Out No longer eligibl e based on patient's age to complete this topic MENINGOCOCCAL GROUPS A/C/Y/W VACCINE Aged Out No longer eligible b ased on patient's age to complete this topic PNEUMOCOCCAL VACCINE Aged Out No long er eligible based on patient's age to complete this topic [place] [address] [place] [address] Care Teams Coconut Boiler Relationship Specialty Start Date End Date Jesse Camarena DO PCP - General 03/24/19
== END 2025-05-31 14:41 | disposition home or self-care (01) ==
PROVIDERS: Emergency Provider Physician Assistant
DX: N30.01 Acute cystitis with hematuria (principal); K56.1 Intussusception; F17.210 Nicotine dependence, cigarettes, uncomplicated; R94.31 Abnormal electrocardiogram [ECG] [EKG]
CPT/HCPCS: 36415; 74177; 80053; 81001; 81025; 83690; 85025; 87086; 87186; 93005; 99284; Q9967

== ENCOUNTER 2025-07-07 13:26 | Emergency (ER) | payer OTHER, SELFPAY ==
[2025-07-07] VITALS (9 sets, daily range): BP systolic 87–108; BP diastolic 51–74; PULSE 69–91; RESP 13–20; TEMP 36.9; O2SAT 98–100
--- NOTE | ~2025-07-07 | XR_ITS ---
EXAMINATION: XR chest 2V DATE: 07/07/2025 15:11 INDICATION: Syncopal episode TECHNIQUE: PA and lateral views of the chest were obtained. COMPARISON: None FINDINGS: The lungs are clear with no focal airspace opacities, pulmonary edema, pleural effusion or pneumothor ax. The cardiomediastinal silhouette is normal. Visualized bones and soft tissues are unremarkable. IMPRESSION: 1. No acute cardiopulmonary disease. Reviewed, dictated and finalized at location A.
--- NOTE | ~2025-07-07 | CT_ITS ---
EXAMINATION: CT cervical spine wo con DATE: 07/07/2025 15:56 INDICATION: Fall with head injury TECHNIQUE: Computed tomography (CT) of the cervical spine was performed without intravenous contrast. Automated exposure control and iterative reconstruction technique were employed. The dose-length pro duct was 89.29 mGy-cm. COMPARISON: None FINDINGS: 7 degrees cervical levocurvature. Mild reversal of the normal cervical lordosis. No spondylolisthesis or facet subluxation. Vertebral body heights are normal. Mild disc height loss at C6-C7 with moderat e bilateral uncovertebral osteoarthritis and minimal disc height loss with mild uncovertebral osteoar thritis at C5-C6. Small posterior disc osteophyte complex at C6-7 resulting in mild central canal kailey nosis at this level. Moderate facet osteoarthritis on the right at C2-C3 and bilaterally at T2-T3 and T3-T4. Mild facet osteoarthritis throughout the remainder of the cervical and visualized upper thora cic spine. Mild neural foraminal stenosis on the right at C2-C3 and bilaterally at C6-C7. Minimal cecy ral from stenosis at a few additional cervical levels. Cervical soft tissues are unremarkable. Visual ized apices of lungs are clear. IMPRESSION: 1. Mild cervical spondylosis. No acute osseous adenopathy. Reviewed, dictated and finalized at location A.
--- NOTE | ~2025-07-07 | CT_ITS ---
EXAMINATION: CT brain wo con DATE: 07/07/2025 15:54 INDICATION: Head injury TECHNIQUE: Computed tomography (CT) of the head was performed without intravenous contrast. Sagittal and coronal reconstructions were performed. The mA was adjusted according to patient size. Iterative reconstruction technique was employed. The dose-length product was 605.33 mGy-cm. COMPARISON: head CT dated 06/15/2013 and brain MR dated FINDINGS: No fracture. No acute intracranial hemorrhage, acute infarction or abnormal extra axial fluid collect ion. Ventricles are normal and symmetric. No mass/mass effect. The orbits, paranasal sinuses and mast oid air cells are normal. IMPRESSION: 1. Normal head CT. No fracture or acute intracranial process. Reviewed, dictated and finalized at location A.
--- OUTSIDE RECORDS SUMMARY | 2025-07-07 13:29 | XMS_ITS | Clinical Summary ---
Author Organization [facility] Address [address] [place] [address] Care Team Providers Care Judo Instructor Name Role Phone Aleidamitch Jesse Adis DO Primary Care Provider [phone] Source Comments [facility],non-owned Affiliates and Associated Physician Practices is amultiple site organization consisting of ambulatory clinics and hospital sitesin [place], [place], [place] and [place]. This disclosure is being madepursuant to the [...] on file Legal Sex Female 5:35 AM LONG TERM Gender Identity Not on file Sexual Orientation Not on file Plan of Treatment Health Maintenance Due Date Last Done Comments HIV SCREENING 2008 HEPATITIS C SCREENING 11/25/2011 DTAP/TDAP/TD VACCINES (1 - Tdap) 2012 HEPATITIS B VACCINE (1 of 3 - 19+ 3-dose series) 2012 PAP SMEAR 2014 HPV VACCINE (1 - 3-dose SCDM series) 2020 COVID-19 VACCINE ( - 2023-2 5 season) 2024 DEPRESSION SCREENING 12/01/2024 INFLUENZA VACCINE (#1) 2025 ZOSTER VACCINE (1 of 2) 2043 [...] patient's age to complete this topic Insurance Care Teams Judo Instructor Relationship Specialty Start Date End Date Jesse Camarena DO PCP - General 03/24/19
--- NOTE | 2025-07-07 14:49 | ECG_ITS ---
Test Date: 2025-07-07 14:57:17 Measurements Intervals [place] Rate: 70 P: 58 NV: 167 QRS: 78 QRSD: 101 T: 62 QT: 371 QTc: 400 Interpretive Statements SINUS RHYTHM INCOMPLETE RIGHT BUNDLE BRANCH BLOCK BASELINE ARTIFACT- I, II, III, AVL, AVF BORDERLINE ECG Compared to ECG 05/31/2025 12:57:24 No significant changes Electronically Signed On 07-07-2025 14:59:14 CDT by Jam Garcia D.O.
[2025-07-07 15:08] LABS: BEDSIDEPREGUCG Negative (Negative)
[2025-07-07 15:11] LABS: Hematocrit 46.3 % (37.0-47.0); Hemoglobin 15.6 g/dL (12.0-15.0); Immature Granulocyte Percent A 0.2 % (0-0.5); Lymphocytes Absolute Auto 1.64 K/mm3 (0.9-3.2); Mean Corpuscular HGB Conc 33.7 g/dl (32-36); Mean Corpuscular Hemoglobin 33.1 pg (26-34); Mean Corpuscular Volume 98.3 fl (80-100); Nucleated Red Blood Cells Absolute Auto 0.000 K/mm3 (0.0-0.012); Nucleated Red Blood Cells Perc 0.0 % (0.0-0.2); Platelet Count Result 170 k/mm3 (150-375); Red Blood Count 4.71 M/mm3 (4.2-5.4); White Blood Count 9.3 K/mm3 (4.5-10.0)
[2025-07-07 15:30] LABS: Alanine Aminotransferase 14 U/L (6-35); Albumin Level 3.2 g/dL (3.5-5.1); Alkaline Phosphatase 36 U/L (38-126); Anion Gap 4 mmol/L (4-12); Aspartate Amino Transferase 24 U/L (14-36); Bilirubin,Total 0.2 mg/dL (0.2-1.3); Blood Urea Nitrogen 15 mg/dL (7-17); Calcium 8.5 mg/dL (8.4-10.2); Carbon Dioxide 23 mmol/L (22-30); Chloride 111 mmol/L (98-107); Estimated CRCL calculation 82 ml/min; Estimated Glomerular Filt Rate > 60; Glucose 96 mg/dL (65-110); Potassium 3.9 mmol/L (3.4-5.0); Sodium 138 mmol/L (137-145); Total Protein 5.3 g/dL (6.3-8.2)
--- OUTSIDE RECORDS SUMMARY | 2025-07-07 16:03 | XMS_ITS | Clinical Summary ---
Author Organization [facility] Address [address] [place] [address] Care Team Providers Care Boxing Machine Operator Name Role Phone Aleidamitch Jesse Adis DO Primary Care Provider [phone] Source Comments [facility],non-owned Affiliates and Associated Physician Practices is amultiple site organization consisting of ambulatory clinics and hospital sitesin [place], [place] and [place]. This disclosure is being madepursuant to the Care Everywhere program and may not contain all information available regarding this patient. 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
[2025-07-07] MEDS: SODIUM CHLORIDE 0.9% IV 1,000 ML 999 ML IV CONT (16:12)
[2025-07-07 16:18] LABS: Add Urine Microscopic? YES; Appearance Urine Cloudy (Clear); Glucose Urine UA Negative (Negative); Leukocyte Esterase Ur 2+ LEU/UL (Negative); Nitrate Urine Negative (Negative); Specific Grav Ur 1.022 (1.001-1.035)
--- NOTE | 2025-07-07 17:21 | ED.GENADULT ---
HPI - General Adult General Chief complaint: Syncope Stated complaint: syncope Time Seen by Provider: 07/07/25 15:13 History of Present Illness HPI narrative: Patient is a 29-year-old female who presents ER after having 2 separate syncopal episodes. 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 She then awoke and tried to walk to the back and lost consciousness again. She did hit her head on the concrete. She is in a cervical collar. No extremity numbness or tingling. She does report she has had some dark urine that is burning when she urinates. No abdominal pain. No nausea vomiting. No additional concerns. Related Data Home Medications ?Medication ?Instructions ?Recorded ?Confirmed ?Last Taken ?Type Classic 05/30/23 05/29/23 07:00 History Allergies Allergy/AdvReac Type Severity Reaction Status Date / Time No Known Allergies Allergy Mild Verified 07/07/25 14:51 Review of Systems Review of Systems: All systems reviewed & are unremarkable except as noted in HPI and below Constitutional: Constitutional: Reports no additional constitutional complaints ENT: Reports system reviewed and no additional complaints, except as documented Cardiovascular: Cardiovascular: Reports no additional cardiovascular complaints Respiratory: Respiratory: Reports no additional respiratory complaints Gastrointestinal: Gastrointestinal: Reports no additional gastrointestinal complaints Genitourinary: Genitourinary: Reports no additional female genitourinary complaints Neurologic: Reports system reviewed and no additional complaints, except as documented [facility] Past Medical History Medical History Syncope chronic history Surgical History Surgical History No pertinent past surgical history Family History Family History Mother Patient's mother is in good health Father Patient's father is in good health Social History Social History Years smoked: 10 Smoking status: Current every day smoker Tobacco type: cigarettes Second hand tobacco smoke exposure: No Alcohol intake: never Substance use: current Lack of Transportation: No Lack of Food: Never True Current Housing: I Have Housing Concerned About Future Housing: YES Difficulty Paying Gas/Electric Bills: No Difficulty Paying for Meds: No Currently Unemployed: No Education: Associate Degree Difficulty w/ Childcare or Family Care: No Gender identity (if verbalized by the patient): Female Spiritual care concerns: No Exam Narrative: GENERAL: Well-appearing, well-nourished, and in no acute distress. HEAD: Normocephalic, atraumatic. ENT: Mucous membranes moist. NECK: Supple. C-spine immobilized without midline tenderness. CHEST: Clear to auscultation. No respiratory distress. HEART: Regular rate and rhythm. Normal peripheral pulses. ABDOMEN: Soft, nontender, nondistended. EXTREMITIES: Normal range of motion. No edema. SKIN: Warm, dry, no rash. NEURO: Alert and oriented x3. PSYCH: Normal mood and affect. Course Course Emergency Course: Discussed imaging and lab results. Discharge home with oral antibiotics. Follow-up with PCP. Received 1 L IV fluid. Blood pressure improved. Vital Signs Vital signs: Vital Signs Temperature 98.5 F 07/07/25 13:46 Pulse Rate 84 07/07/25 13:46 Respiratory Rate 18 07/07/25 13:46 Blood Pressure 87/51 L 07/07/25 13:46 Pulse Oximetry 98 07/07/25 13:46 Oxygen Delivery Room Air 07/07/25 13:46 Temperature 98.5 F 07/07/25 13:46 Pulse Rate 71 07/07/25 16:51 Respiratory Rate 17 07/07/25 16:51 Blood Pressure 101/65 07/07/25 16:51 Pulse Oximetry 98 07/07/25 16:51 Oxygen Delivery Room Air 07/07/25 13:46 Medical Decision Making Vital Signs Vital Signs: Vital Signs Temperature 98.5 F 07/07/25 13:46 Pulse Rate 84 07/07/25 13:46 Respiratory Rate 18 07/07/25 13:46 Blood Pressure 87/51 L 07/07/25 13:46 Pulse Oximetry 98 07/07/25 13:46 Oxygen Delivery Room Air 07/07/25 13:46 Temperature 98.5 F 07/07/25 13:46 Pulse Rate 71 07/07/25 16:51 Respiratory Rate 17 07/07/25 16:51 Blood Pressure 101/65 07/07/25 16:51 Pulse Oximetry 98 07/07/25 16:51 Oxygen Delivery Room Air 07/07/25 13:46 Lab Data 07/07/25 15:04 07/07/25 15:04 Labs: Lab Results 07/07/25 07/07/25 07/07/25 Range/Units 15:04 15:06 16:05 WBC 9.3 (4.5-10.0) K/mm3 RBC 4.71 (4.2-5.4) M/mm3 Hgb 15.6 H (12.0-15.0) g/dL Hct 46.3 (37.0-47.0) % MCV 98.3 (80-100) fl MCH 33.1 (26-34) pg MCHC 33.7 (32-36) g/dl RDW 13.3 (11.5-14.5) % Plt Count 170 (150-375) k/mm3 MPV 10.4 (7.4-10.4) fl Immature Gran % (Auto) 0.2 (0-0.5) % Neut % (Auto) 75.2 H (45.5-73.1) % Lymph % (Auto) 17.6 L (18.3-44.2) % [place] % (Auto) 6.1 (2.6-8.5) % Eos % (Auto) 0.6 (0-4.4) % Baso % (Auto) 0.3 (0.2-1.2) % Lymph # (Auto) 1.64 (0.9-3.2) K/mm3 [place] # (Auto) 0.6 (0.1-0.6) K/mm3 Eos # (Auto) 0.1 (0-0.3) K/mm3 Baso # (Auto) 0.0 (0.0-0.1) K/mm3 Abs Immat Gran (auto) 0.02 (0.00-0.031) K/mm3 Absolute Neuts (auto) 7.0 H (1.3-6.7) K/mm3 Absolute Nucleated RBC 0.000 (0.0-0.012) K/mm3 Nucleated RBC % 0.0 (0.0-0.2) % Sodium 138 (137-145) mmol/L Potassium 3.9 (3.4-5.0) mmol/L Chloride 111 H (98-107) mmol/L Carbon Dioxide 23 (22-30) mmol/L Anion Gap 4 (4-12) mmol/L BUN 15 (7-17) mg/dL Creatinine 0.69 L (0.7-1.0) mg/dL Estim Creat Clear Calc 82 ml/min Estimated GFR > 60 (59 - ) Glucose 96 (65-110) mg/dL Calcium 8.5 (8.4-10.2) mg/dL Total Bilirubin 0.2 (0.2-1.3) mg/dL AST 24 (14-36) U/L ALT 14 (6-35) U/L Alkaline Phosphatase 36 L (38-126) U/L Total Protein 5.3 L (6.3-8.2) g/dL Albumin 3.2 L (3.5-5.1) g/dL Urine Color Yellow (Yellow) Urine Appearance Cloudy H (Clear) Urine pH 6.0 (5.0-9.0) Ur Specific [place] 1.022 (1.001-1.035) Urine Protein 1+ H (Negative) mg/dL Urine Glucose (UA) Negative (Negative) mg/dL Urine Ketones Negative (Negative) mg/dL Ur Blood (Man) Trace (Negative) Urine Nitrate Negative (Negative) Urine Bilirubin Negative (Negative) Urine Urobilinogen 0.2 (<2.0) mg/dL Leukocyte Esterase Rfl 2+ H (Negative) CÉSAR/UL Urine RBC 3-5 H (0-2) /hpf Urine WBC >100 H (0-3) /hpf Ur Squamous Epith Cells Occasional (Few) /hpf Urine Bacteria 2+ H /hpf Urine Casts 3-5 POC Urine HCG, Qual Negative (Negative) Imaging Data Radiologist's impression: ITS Impressions Chest X-Ray 07/07/25 15:26 IMPRESSION: 1. No acute cardiopulmonary disease. Head CT 07/07/25 16:04 IMPRESSION: 1. Normal head CT. No fracture or acute intracranial process. Cervical Spine CT 07/07/25 16:06 IMPRESSION: 1. Mild cervical spondylosis. No acute osseous adenopathy. ECG Data EKG #1: ECG completion date: 07/07/25 ECG completion time: 14:57 EKG Interpretation: normal rate (70), sinus rhythm, non-specific ST changes, normal QRS and normal QT Discharge Plan Discharge Clinical Impression: Syncope Patient Disposition: Home Condition: Stable Instructions: Antibiotic Form, Urinary Tract Infection in Women (ED), Syncope (ED) Additional Instructions: You should return to the emergency department if you develop severe nausea and vomiting and are unable to keep liquids down, if you develop severe back/flank or stomach pain, or if your symptoms are not clearly improving at home. Patient Language: South African Prescriptions: New cephalexin 500 mg capsule 500 mg PO Q12H Qty: 14 0RF No Action docusate sodium 100 mg Capsule 100 mg PO BID PRN (Reason: Constipation) 0RF Classic sertraline [Zoloft] 50 mg Tablet 50 mg PO QAM Qty: 30 3RF cephalexin 500 mg capsule 500 mg PO Q6H 7 Days Qty: 28 0RF Follow-up/Referrals: Pipe Shelley MD [Physician] - 1 Week
== END 2025-07-07 17:52 | disposition home or self-care (01) ==
PROVIDERS: Emergency Provider Emergency Medicine
DX: R55 Syncope and collapse (principal); F17.210 Nicotine dependence, cigarettes, uncomplicated; Z79.899 Other long term (current) drug therapy; M47.812 Spondylosis without myelopathy or radiculopathy, cervical region; I45.10 Unspecified right bundle-branch block
CPT/HCPCS: 36415; 70450; 71046; 72125; 80053; 81001; 81025; 85025; 87086; 93005; 96360; 99284; J7030

== ENCOUNTER 2025-08-01 19:03 | Observation (INO) | payer OTHER, SELFPAY ==
[2025-08-01] VITALS (23 sets, daily range): BP systolic 104–130; BP diastolic 63–92; PULSE 64–87; RESP 12–18; TEMP 36.5–36.7; O2SAT 96–99; BMI 19.5
--- NOTE | ~2025-08-01 | CT_ITS ---
EXAMINATION: CT abdomen pelvis w con DATE: 08/01/2025 20:13 INDICATION: Lower abdominal pain. Prior intussusception. TECHNIQUE: Computed tomography (CT) of the abdomen and pelvis was performed with 100 mL Omnipaque-350 intravenous contrast. Automated exposure control and iterative reconstruction technique were employed. The dose-length product was 182.52 mGy-cm. COMPARISON: 05/31/2025 FINDINGS: Lung bases are clear. Heart size is normal. No pericardial or pleural effusion. 1.1 cm cyst in the left hepatic lobe. Gallbladder, spleen, pancreas, bilateral adrenal glands and kidneys are normal. Small loop of small bowel extends into a left femoral hernia. The bowel exiting the hernia is decompressed. The bowel immediately proximal to the hernia is fluid-filled with pseudo feculent appearance suggestive of delayed transit without emily dilation suggesting neither either early or low-grade obstruction. Normal appendix. Bladder, uterus and bilateral adnexa are unremarkable. No free intraperitoneal gas or fluid. No pathologically enlarged abdominal or pelvic lymphadenopathy. Mild lumbar spondylosis. IMPRESSION: 1. Very small loop of small bowel extends into a left femoral hernia with suggestion of possible either very early or mild partial obstruction. Reviewed, dictated and finalized at location A. IMPRESSION: 1. Very small loop of small bowel extends into a left femoral hernia with sugge stion of possible either very early or mild partial obstruction.
[2025-08-01 19:28] LABS: BEDSIDEPREGUCG Negative (Negative)
[2025-08-01 19:28] LABS: Hematocrit 47.3 % (37.0-47.0); Hemoglobin 15.9 g/dL (12.0-15.0); Immature Granulocyte Percent A 0.3 % (0-0.5); Lymphocytes Absolute Auto 3.05 K/mm3 (0.9-3.2); Mean Corpuscular HGB Conc 33.6 g/dl (32-36); Mean Corpuscular Hemoglobin 32.5 pg (26-34); Mean Corpuscular Volume 96.7 fl (80-100); Nucleated Red Blood Cells Absolute Auto 0.000 K/mm3 (0.0-0.012); Nucleated Red Blood Cells Perc 0.0 % (0.0-0.2); Platelet Count Result 178 k/mm3 (150-375); Red Blood Count 4.89 M/mm3 (4.2-5.4); White Blood Count 9.9 K/mm3 (4.5-10.0)
--- NOTE | 2025-08-01 19:29 | ED.ABDPAIN ---
HPI - Abdominal Pain General Chief Complaint: Abdominal Pain Stated Complaint: abdominal pain Time Seen by Provider: 08/01/25 19:07 History of Present Illness HPI narrative: 29-year-old female with reported history of intussusception presents emergency department parents for intussusception. Patient states at 5:30 p.m. tonight she had sudden onset lower abdominal pain. She states it feels like the last time she had an episode of intussusception which was a couple months ago. She states that episode self result about 45 minutes and she was discharged home. She states she waited out this episode hopes that pain would resolve but it has not which has prompted her to come to the ED. She reports it feels the same as the last episode. She denies prior abdominal surgeries, nausea, vomiting, diarrhea, fever, urinary complaints. LMP 07/15. Denies vaginal discharge or concern for STDs. Last bowel movement was yesterday and normal. Related Data Home Medications ?Medication ?Instructions ?Recorded ?Confirmed ?Last Taken ?Type Classic 05/30/23 05/29/23 07:00 History Allergies Allergy/AdvReac Type Severity Reaction Status Date / Time No Known Allergies Allergy Mild Verified 07/07/25 14:51 Review of Systems Review of Systems: All systems reviewed & are unremarkable except as noted in HPI and below PMFSH Past Medical History Medical History Syncope chronic history Surgical History Surgical History No pertinent past surgical history Family History Family History Mother Patient's mother is in good health Father Patient's father is in good health Social History Social History Years smoked: 10 Smoking status: Current every day smoker Tobacco type: cigarettes Second hand tobacco smoke exposure: No Alcohol intake: never Substance use: current Lack of Transportation: No Lack of Food: Never True Current Housing: I Have Housing Concerned About Future Housing: YES Difficulty Paying Gas/Electric Bills: No Difficulty Paying for Meds: No Currently Unemployed: No Education: Associate Degree Difficulty w/ Childcare or Family Care: No Gender identity (if verbalized by the patient): Female Spiritual care concerns: No Exam Narrative: GENERAL: Well-appearing, well-nourished, and in no acute distress. HEAD: Normocephalic, atraumatic. EYES: EOMI. ENT: Nares clear, no rhinorrhea or epistaxis. Mucous membranes moist. NECK: Supple. CHEST: Clear to auscultation. No respiratory distress. HEART: Regular rate and rhythm. No murmur heard. Normal peripheral pulses. ABDOMEN: Quiet bowel sounds. Abdomen soft with tenderness in the suprapubic region. Voluntary guarding. No rebound or rigidity. No CVA tenderness EXTREMITIES: Normal range of motion. No edema. SKIN: Warm, dry, no rash. NEURO: No focal deficits. Alert and oriented x3 Course Vital Signs Vital signs: Vital Signs Temperature 98.1 F 08/01/25 19:16 Pulse Rate 87 08/01/25 19:16 Respiratory Rate 13 08/01/25 19:16 Blood Pressure 113/86 08/01/25 19:16 Pulse Oximetry 99 08/01/25 19:16 Oxygen Delivery Room Air 08/01/25 19:16 Temperature 98.1 F 08/01/25 19:16 Pulse Rate 87 08/01/25 19:16 Respiratory Rate 13 08/01/25 19:16 Blood Pressure 113/86 08/01/25 19:16 Pulse Oximetry 99 08/01/25 19:16 Oxygen Delivery Room Air 08/01/25 19:16 MDM - Abdominal Pain MDM Narrative Medical decision making narrative: 29-year-old female presents to the emergency department for sudden onset lower abdominal pain that started at 1730 this evening. Patient is concerned she has intussusception. Triage vitals are stable. Exam is notable for the above. CBC without leukocytosis. Hemoglobin elevated at 15.9, possibly due to dehydration. Fluids provided. Chemistries are largely unremarkable. UA with 6-10 white blood cells, 3-5 RBCs and 1+ leuk esterase. Patient denies symptoms of UTI, urine cultures pending. is negative. Lipase normal. CT abdomen pelvis shows a right inguinal hernia containing a loop of small bowel which is fluid distended, measuring 2.5 cm in diameter. There is mild fluid adjacent to the herniated small bowel loop. In addition there is abnormal distended small bowel loops in the pelvis proximal to, extending to the hernia, with fecalization, measuring up to 2.7 cm. No mucosal wall thickening or pneumatosis. However, the appearance is highly concerning for developing small bowel obstruction proximal to the inguinal hernia. There is no free intraperitoneal fluid or pneumoperitoneum. Patient updated on results. On re-evaluation she is resting comfortably in exam bed, however she did require 2 doses of morphine in the ED for pain. She states her pain is now a 0/10, however it is difficult to discern if this is due to spontaneous resolution verses successful analgesia. I discussed the case with general surgeon on-call, Dr. Anguiano, who agrees to admission under observation status, keep the patient NPO, provide fluids and p.r.n. morphine with plans to re-evaluate the patient in the morning. Patient is agreeable with this plan. Lab Data 08/01/25 19:20 08/01/25 19:20 Labs: Lab Results 08/01/25 08/01/25 Range/Units 19:16 19:20 WBC 9.9 (4.5-10.0) K/mm3 RBC 4.89 (4.2-5.4) M/mm3 Hgb 15.9 H (12.0-15.0) g/dL Hct 47.3 H (37.0-47.0) % MCV 96.7 (80-100) fl MCH 32.5 (26-34) pg MCHC 33.6 (32-36) g/dl RDW 12.6 (11.5-14.5) % Plt Count 178 (150-375) k/mm3 MPV 10.8 H (7.4-10.4) fl Immature Gran % (Auto) 0.3 (0-0.5) % Neut % (Auto) 61.5 (45.5-73.1) % Lymph % (Auto) 30.9 (18.3-44.2) % [place] % (Auto) 6.1 (2.6-8.5) % Eos % (Auto) 0.7 (0-4.4) % Baso % (Auto) 0.5 (0.2-1.2) % Lymph # (Auto) 3.05 (0.9-3.2) K/mm3 [place] # (Auto) 0.6 (0.1-0.6) K/mm3 Eos # (Auto) 0.1 (0-0.3) K/mm3 Baso # (Auto) 0.1 (0.0-0.1) K/mm3 Abs Immat Gran (auto) 0.03 (0.00-0.031) K/mm3 Absolute Neuts (auto) 6.1 (1.3-6.7) K/mm3 Absolute Nucleated RBC 0.000 (0.0-0.012) K/mm3 Nucleated RBC % 0.0 (0.0-0.2) % Sodium 138 (137-145) mmol/L Potassium 4.1 (3.4-5.0) mmol/L Chloride 104 (98-107) mmol/L Carbon Dioxide 25 (22-30) mmol/L Anion Gap 9 (4-12) mmol/L BUN 17 (7-17) mg/dL Creatinine 0.64 L (0.7-1.0) mg/dL Estim Creat Clear Calc Not Reportable Estimated GFR > 60 (59 - ) Glucose 121 H (65-110) mg/dL Calcium 9.6 (8.4-10.2) mg/dL Total Bilirubin 0.2 (0.2-1.3) mg/dL AST 21 (14-36) U/L ALT 13 (6-35) U/L Alkaline Phosphatase 51 (38-126) U/L Total Protein 7.9 (6.3-8.2) g/dL Albumin 4.7 (3.5-5.1) g/dL Lipase 158 (23-300) U/L Urine Color Yellow (Yellow) Urine Appearance Cloudy H (Clear) Urine pH 5.5 (5.0-9.0) Ur Specific [place] 1.026 (1.001-1.035) Urine Protein Trace (Negative) mg/dL Urine Glucose (UA) Negative (Negative) mg/dL Urine Ketones Negative (Negative) mg/dL Ur Blood (Man) Trace (Negative) Urine Nitrate Negative (Negative) Urine Bilirubin Negative (Negative) Urine Urobilinogen 0.2 (<2.0) mg/dL Leukocyte Esterase Rfl 1+ H (Negative) CÉSAR/UL Urine RBC 3-5 H (0-2) /hpf Urine WBC 6-10 H (0-3) /hpf Ur Squamous Epith Cells None seen (Few) /hpf Urine Bacteria None seen /hpf Urine Casts 0-2 POC Urine HCG, Qual Negative (Negative) Discharge Plan Discharge Clinical Impression: Inguinal hernia Qualifiers: Obstruction and gangrene presence: with obstruction but without gangrene Laterality: unilateral Recurrence: not specified as recurrent Qualified Code(s): K40.30 - Unilateral inguinal hernia, with obstruction, without gangrene, not specified as recurrent Abdominal pain Qualifiers: Abdominal location: lower abdomen, unspecified Qualified Code(s): R10.30 - Lower abdominal pain, unspecified Patient Disposition: Still a Patient Condition: Stable Instructions: Antibiotic Form Patient Language: Bangladeshi Prescriptions: No Action docusate sodium 100 mg Capsule 100 mg PO BID PRN (Reason: Constipation) 0RF Classic sertraline [Zoloft] 50 mg Tablet 50 mg PO QAM Qty: 30 3RF cephalexin 500 mg capsule 500 mg PO Q12H Qty: 14 0RF cephalexin 500 mg capsule 500 mg PO Q6H 7 Days Qty: 28 0RF Follow-up/Referrals: PHYSICIAN,NUT PROCESSING SUPERVISOR [Primary Care Provider, Internal Medicine]
[2025-08-01] MEDS: MORPHINE SULFATE (*CRX) 4 MG/ML INJ IV PUSH ×3 (19:33→22:56)
[2025-08-01 19:34] LABS: Add Urine Microscopic? YES; Appearance Urine Cloudy (Clear); Glucose Urine UA Negative (Negative); Leukocyte Esterase Ur 1+ LEU/UL (Negative); Nitrate Urine Negative (Negative); Non Pathogenic Casts 0-2; Specific Grav Ur 1.026 (1.001-1.035)
[2025-08-01 19:39] LABS: Alanine Aminotransferase 13 U/L (6-35); Albumin Level 4.7 g/dL (3.5-5.1); Alkaline Phosphatase 51 U/L (38-126); Anion Gap 9 mmol/L (4-12); Aspartate Amino Transferase 21 U/L (14-36); Bilirubin,Total 0.2 mg/dL (0.2-1.3); Blood Urea Nitrogen 17 mg/dL (7-17); Calcium 9.6 mg/dL (8.4-10.2); Carbon Dioxide 25 mmol/L (22-30); Chloride 104 mmol/L (98-107); Estimated Glomerular Filt Rate > 60; Glucose 121 mg/dL (65-110); Lipase 158 U/L (23-300); Potassium 4.1 mmol/L (3.4-5.0); Sodium 138 mmol/L (137-145); Total Protein 7.9 g/dL (6.3-8.2)
[2025-08-01] MEDS: SODIUM CHLORIDE 0.9% IV 1,000 ML 999 ML IV CONT (20:23)
[2025-08-01] MEDS: SODIUM CHLORIDE 0.9% IV 1,000 ML 125 ML IV CONT (22:56)
--- NOTE | 2025-08-01 23:16 | ADMGEN ---
This patient, Ev Logan, was admitted to 2 Medical Room 240-01. Patient/family oriented to hospital policies and general routines including ID bracelet, bed and alarms, visiting hours, pain management, procedures, bathroom and other care routines, personal items, smoking policy, room service/diet, and visiting hours. Information on how to activate the Rapid Response Team has been discussed. Patient/Family are encouraged to report perceived risks to care and to ask questions if they do not understand what they are told or what they should do.
[2025-08-02 03:24] VITALS: BP 113/59; PULSE 78; RESP 18; TEMP 36.4; O2SAT 99
[2025-08-02] MEDS: SODIUM CHLORIDE 0.9% IV 1,000 ML 125 ML IV CONT (06:33)
--- NOTE | 2025-08-02 08:42 | P.SS_ITS ---
Same Day Admit/Disch: HPI History of Present Illness Chief complaint: Incarcerated left inguinal hernia Narrative: vE Logan is a 29 year old female who came to the emergency room yesterday evening with severe abdominal pain in the left lower quadrant. She had come to the emergency room in May with a very similar pain in the same area. CT scan on that visit showed a transient intussusception. Last night, she noticed a lump in the area of the left groin. She had a CT scan of the abdomen and pelvis which showed an incarcerated left inguinal hernia with small bowel incarcerated and evidence of a small-bowel obstruction. Patient received a couple of different doses of morphine sulfate and the pain and lump resolved. I was called by the emergency room physician and the patient was placed in the hospital for observation. She is seen now for incarcerated left inguinal hernia with obstruction that has seemingly resolved. I reviewed her CT scan from May as well as the 1 from last night. The left inguinal hernia is present on the scan from May and the changes noted in the small intestine could also be consistent with an incarceration rather than intussusception. Patient has no previous history of hernia surgery or abdominal surgery. She has scars just inside of the iliac crest in both lower quadrants from where she had surgery for hip dysplasia. Currently she is feeling good and would like to go home. [facility] Past Medical History Medical History Syncope chronic history Surgical History Surgical History No pertinent past surgical history Family History Family History Mother Patient's mother is in good health Father Patient's father is in good health Grandparent Diabetes mellitus Social History Social History Smoking packs per day: 0.5 Smoking cigarettes per day: 10.0 Years smoked: 10 Smoking pack-years: 5.00 Smoking status: Current every day smoker Tobacco type: cigarettes and e-cigarettes/vaping Second hand tobacco smoke exposure: No Alcohol intake: current Drinks per week: 2 Substance use: current Substance use type: marijuana Last use: 07/30 Lack of Transportation: No Lack of Food: Never True Current Housing: I Have Housing Concerned About Future Housing: No Difficulty Paying Gas/Electric Bills: No Difficulty Paying for Meds: No Currently Unemployed: No Education: Associate Degree Difficulty w/ Childcare or Family Care: No Gender identity (if verbalized by the patient): Female Spiritual care concerns: No Same Day Admit/Disch: Med Pre-admit Medications Home Medications ?Medication ?Instructions ?Recorded ?Confirmed ?Type No Home Medications 08/01/25 08/01/25 H istory Review of Systems Review of Systems All systems reviewed & are unremarkable except as noted in HPI and below ( HPI) Exam Const: General: comfortable, no acute distress, alert and awake HENMT: Head: normocephalic and atraumatic Mouth: Yes Normal oral and palatal mucosa present Eyes: Conjunctivae: conjunctivae normal Pupils: Equal, round and reactive pupils present EOM: EOMs intact bilaterally Neck: Neck: normal visual inspection, no lymphadenopathy and nontender Resp: Effort & Inspection: normal respiratory effort Auscultation: clear to auscultation bilaterally Cardio: Rate: regular rate Rhythm: regular rhythm Heart sounds: no gallops, no murmurs and no rubs GI: Inspection: no abdominal wall ecchymosis, non-distended, scaphoid and scar ( bilateral iliac from hip surgery) GI Palp: Yes Soft to palpation, No Tenderness to palpation present (GI), No Hepatomegaly present, No Splenomegaly present, Yes Hernia present ( left inguinal hernia easily palpable with cough even in supine position) and Yes Other GI palpation findings present ( no right inguinal hernia noted) Auscultation: normal bowel sounds Skin: Lesions: no lesions Rashes: no rashes Neuro: General: no focal motor deficits and CN's II-XI intact bilaterally Cranial nerves: Yes Equal, round and reactive pupils present, Yes Bilaterally intact EOM present, Yes facial symmetry and Yes Midline tongue present Speech: normal speech Motor exam (neuro): 5/5 motor strength present throughout and Motor abnormalities not present Extrem: General: no clubbing, cyanosis or edema and edema Psych: Affect: normal affect Thought process: Normal thought process present Insight: Good insight present (Psych) DS: Data Data Completed and Pending Labs on day of discharge: Labs from last 24 hours 08/01/25 08/01/25 19:20 19:16 WBC 9.9 RBC 4.89 Hgb 15.9 H Hct 47.3 H MCV 96.7 MCH 32.5 MCHC 33.6 RDW 12.6 Plt Count 178 MPV 10.8 H Immature Gran % (Auto) 0.3 Neut % (Auto) 61.5 Lymph % (Auto) 30.9 [place] % (Auto) 6.1 Eos % (Auto) 0.7 Baso % (Auto) 0.5 Lymph # (Auto) 3.05 [place] # (Auto) 0.6 Eos # (Auto) 0.1 Baso # (Auto) 0.1 Abs Immat Gran (auto) 0.03 Absolute Neuts (auto) 6.1 Absolute Nucleated RBC 0.000 Nucleated RBC % 0.0 Sodium 138 Potassium 4.1 Chloride 104 Carbon Dioxide 25 Anion Gap 9 BUN 17 Creatinine 0.64 L Estim Creat Clear Calc Not Reportable Estimated GFR > 60 Glucose 121 H Calcium 9.6 Total Bilirubin 0.2 AST 21 ALT 13 Alkaline Phosphatase 51 Total Protein 7.9 Albumin 4.7 Lipase 158 Urine Color Yellow Urine Appearance Cloudy H Urine pH 5.5 Ur Specific [place] 1.026 Urine Protein Trace Urine Glucose (UA) Negative Urine Ketones Negative Ur Blood (Man) Trace Urine Nitrate Negative Urine Bilirubin Negative Urine Urobilinogen 0.2 Leukocyte Esterase Rfl 1+ H Urine RBC 3-5 H Urine WBC 6-10 H Ur Squamous Epith Cells None seen Urine Bacteria None seen Urine Casts 0-2 POC Urine HCG, Qual Negative DS: Summary Time Spent with Patient Time attestation: Total time spent providing and/or coordinating discharge services: DS: Admitting Diagnosis Discharge Date 08/02/2025 Admitting Diagnosis incarcerated left inguinal hernia with small-bowel obstruction - reduced with analgesics. Have recommended patient proceed with robotic laparoscopic repair of the left inguinal hernia with mesh. I explained the procedure to her in detail including the usual length of the surgery, the length of recovery, potential risks, and time off work. All questions were answered. She agrees to go ahead. I cannot get access to the robot until tomorrow afternoon. Patient is a single mom with 3 children and would like to go home today. She agrees to come back for the surgery as an outpatient tomorrow. I explained the importance of the surgery to her and that if this happens again, it may not be able to be reduced which would require emergency surgery. Also, there is the potential for bowel infarction and the need for bowel resection should this be incarcerated for a long period of time. She understands and agrees. I will go ahead and discharge her today with plans for outpatient repair tomorrow afternoon. DS: Discharge Diagnosis Discharge Diagnosis (1) Incarcerated left inguinal hernia: Code(s): K40.30 - Unilateral inguinal hernia, with obstruction, without gangrene, not specified as recurrent Status: Acute Assessment and Plan: Reduced after a couple of doses of morphine in the emergency room. It is very likely that she had this occur in May when she came to the emergency room. Patient will go home today with plans to come back for robotic laparoscopic repair left inguinal hernia with mesh tomorrow afternoon as an outpatient. (2) Hx of small bowel obstruction: Code(s): Z87.19 - Personal history of other diseases of the digestive system Status: Acute Assessment and Plan: obstruction relieved with hernia being reduced. Discharge Plan Discharge Attending physician on discharge: Zac Anguiano Consulting providers: Vikash Reeder Discharging Clinician: Zac Anguiano Anticipated Discharge Date/Time: 08/02/25 09:00 Patient Disposition: Home Activity: may shower, no straining and as tolerated Diet: regular Discharge Instructions: * Surgery planned for tomorrow around 1:30. Please arrive a couple of hours before the surgery. * Avoid heavy exertion or heavy lifting until your surgery tomorrow. * Resume your regular diet. * Call if left lower quadrant pain or knot should recur. * Nothing to eat or drink after midnight tonight. Patient Instructions: Antibiotic Form Patient Language: Romanian Stand Alone Forms: General Discharge Information Follow-up/Referrals: Zac Anguiano MD [Physician, General Surgery] Referral Note: Return to [facility] around 11 or 11:30 tomorrow for outpatient robotic repair of left inguinal hernia. Discharge Medications: Continued No Home Medications Date of admission: 08/01/25 22:25 Primary Care Provider: PHYSICIAN,TOLL TICKET CLERK Admitting Provider: Zac Anguiano Attending physician on admission: Zac Anguiano Condition: Improved
== END 2025-08-02 09:53 | disposition home or self-care (01) ==
LOC: ANHED 22:25 → ANH2MED 22:54
PROVIDERS: Admitting Provider Surgery; Emergency Provider Physician Assistant; Visit Provider Surgery
DX: K40.30 Unilateral inguinal hernia, with obstruction, without gangrene, not specified as recurrent (principal); F17.210 Nicotine dependence, cigarettes, uncomplicated
CPT/HCPCS: 36415; 74177; 80053; 81001; 81025; 83690; 85025; 87086; 96361; 96374; 96375; 96376; 99285; G0378; G0379; J2270; J7030; Q9967

== ENCOUNTER 2025-08-03 02:20 | Day surgery (SDC) | payer OTHER, SELFPAY ==
--- NOTE | 2025-08-02 09:34 | PC.NURSE ---
Report to the Outpatient Waiting Room, entrance under the green pavilion located off [facility], at time _1130_ on date _[id number]_. Planned Procedure Time: _130pm_.? Time changes happen often and if your time is changed the preop area will call you the afternoon before. - You and your visitor will be asked to self-screen and do not enter if you have any COVID symptoms. Please call surgeon if you need to reschedule. - A mask is optional within the hospital at this time. Patients may have clear liquids (water, carbonated beverages, clear teas, apple juice) until 3 hours prior to surgery with a maximum of 20 ounces. - No food from midnight until time of surgery and no smoking, or chewing tobacco (or any form of nicotine). No chewing gum, candy or mints. Take only the following medications with a SIP of water on the morning of surgery: ___None___ DO NOT STOP ANY OF YOUR OTHER PRESCRIPTION MEDICATIONS PRIOR TO SURGERY EXCEPT THE FOLLOWING Hold all vitamins and supplements for 3 days per anesthesiologist. Medications to discontinue per physician Date to take last dose Please no make-up, nail iraqi, hairspray, perfume, deodorant, or body powder the day of surgery.? No jewelry (including any body piercings) or valuables the day of surgery, leave them at home.? Please take a shower or bath the night before, or the morning of, surgery with an antibacterial soap.? Wear comfortable, loose fitting clothing.? - Jewelry must be removed prior to entering the operating room.? Rings and piercings that are not removed may be cut off. - The hospital will not accept responsibility for valuables.? - Please leave all valuables, including medications, at home the day of surgery. If you are going home after surgery, a licensed driver merchandiser must drive you home.? - NO public transportation without another adult if you receive anesthesia. - We recommend that an adult stay with you for 24 hours following discharge. - We also recommend that you do not drive, make important decision, drink alcoholic beverages, or take any drugs that were not prescribed by your health care provider for at least 24 hours after your discharge time. Follow any additional instructions given to you from your surgeon. Telephone instructions given to __Amber___and asked if any additional questions and then verbalized understanding. Patient advised to call surgeon office or pre surgery nurse liaison [phone] if any additional questions.
[2025-08-02 09:57] VITALS: BMI 19.5
[2025-08-03] VITALS (9 sets, daily range): BP systolic 115–132; BP diastolic 70–85; PULSE 67–93; RESP 12–17; TEMP 36.6–37.7; O2SAT 97–100
--- OUTSIDE RECORDS SUMMARY | 2025-08-03 02:22 | XMS_ITS | Clinical Summary ---
Author Organization [facility] Address [address] [place] [address] Care Team Providers Care Salmon Troll Fisher Name Role Phone Aleidamitch Jesse Adis DO Primary Care Provider [phone] Source Comments [facility],non-owned Affiliates and Associated Physician Practices is amultiple site organization consisting of ambulatory clinics and hospital sitesin [place], [place], [place] and [place]. This disclosure is being madepursuant to the Care Everywhere program and may not contain all information available regarding this patient. 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
[2025-08-03] MEDS: ACETAMINOPHEN 500 MG TABLET 1000 MG PO (11:28)
[2025-08-03] MEDS: KETOROLAC 15 MG/ML VIAL (*BKC) IV PUSH (11:34)
[2025-08-03 12:08] LABS: Beta HCG Quantitative < 2.39 mIU/ML
[2025-08-03] MEDS: LACTATED RINGERS 1,000 ML 30 ML IV CONT ×2 (12:45→16:31)
--- NOTE | 2025-08-03 13:44 | WPDHPUPDATE1 ---
History and Physical Update Update Date/Time: 08/03/25 13:44 History and Physical has been reviewed, including an updated exam of the patient. There are NO changes in the patient's condition. Risks, benefits, and alternatives have been discussed and questions answered. Patient agrees to proceed with procedure.
[2025-08-03] MEDS: ceFAZolin 2 GM in SODIUM CHLORIDE 0.9% IV 50 ML 100 ML IVPB (13:50)
--- NOTE | 2025-08-03 13:55 | WPDANESEPPF ---
Anes - Initial Pre Proc Eval Procedure: Operation Date: 08/03/25 13:30 Proposed Procedures p Robotic Laparoscopic Assisted Repair Incarcerated Left Inguinal Hernia - Zac Anguiano MD Date/Time: 08/03/25 13:55 Surgeon: Zac Anguiano MD Pre Op Diagnosis: incarcerated Left inguinal hernia Patient Data Age: 29 Gender: F Height: 1.63 m Weight: 50.1 kg Last Vital Signs Temp 37.7 C H 08/03/25 11:15 Pulse 86 08/03/25 11:15 Resp 16 08/03/25 11:15 BP 115/73 08/03/25 11:15 Pulse Ox 98 08/03/25 11:15 O2 Del Method Room Air 08/03/25 11:15 Allergies Allergy/AdvReac Type Severity Reaction Status Date / Time No Known Allergies Allergy Mild Verified 08/03/25 12:37 Home Medications ?Medication ?Instructions ?Recorded ?Confirmed ?Type No Home Medications 08/01/25 08/02/25 History Laboratory Tests 08/03/25 11:36 Beta HCG, Quant < 2.39 mIU/ML Blood Type A Positive Antibody Screen Negative Patient hx anesthesia problems: none Family hx anesthesia problems: none Results Review: All pre-operative results and documents have been reviewed as part of the pre-operative evaluation. REPLACED BY [facility] Past Medical History Medical History Syncope chronic history Surgical History Surgical History No pertinent past surgical history Family History Family History Mother Patient's mother is in good health Father Patient's father is in good health Grandparent Diabetes mellitus Social History Social History (Updated 08/03/25 @ 13:55 by Ryley Su DO) Smoking packs per day: 0.5 Smoking cigarettes per day: 10.0 Years smoked: 19 Smoking pack-years: 9.50 Smoking status: Current every day smoker Tobacco type: cigarettes Second hand tobacco smoke exposure: No Alcohol intake: current Drinks per week: 2 Substance use: current Substance use type: marijuana Other substance usage details: daily Last use: 07/30 Lack of Transportation: No Lack of Food: Never True Current Housing: I Have Housing Concerned About Future Housing: No Difficulty Paying Gas/Electric Bills: No Difficulty Paying for Meds: No Currently Unemployed: No Education: Associate Degree Difficulty w/ Childcare or Family Care: No Living arrangements: with family Gender identity (if verbalized by the patient): Female Spiritual care concerns: No Anes - Eval Final PreProcedure Day of Procedure 08/03/25 13:55 Patient weight: normal Heart: regular rate and rhythm Lungs: clear to auscultation Airway: Mallampati scale class II Neurological: alert and oriented Last oral intake: >/= 8 hours ASA classification: III Emergent: no Anesthetic plan: proceed Anesthesia type and monitoring: general ETT and standard monitoring Results Review: All pre-operative results and documents have been reviewed as part of the pre-operative evaluation. Informed Consent: The patient's anesthetic plan and its attendant risks and benefits were discussed with the patient/family/POA. Questions were solicited and answers provided to the satisfaction of the patient/family/POA.
[2025-08-03] MEDS: BUPIVACAINE/EPINEPHRINE 0.5% 30 ML VIAL INFILTRATE (14:11)
--- NOTE | 2025-08-03 15:38 | P.OP_ITS ---
Procedure Note - Detailed Date of Procedure 08/03/25 Pre-op Diagnosis incarcerated Left inguinal hernia Post-op Diagnosis Same Procedure Performed Robotic laparoscopic repair incarcerated left inguinal hernia with mesh Surgeon Zac Anguiano MD Social Science Research Assistant Caron Saravia [facility] Anesthesia General and Local Indications patient has had a couple of episodes of incarcerated left inguinal hernia. The most recent was 2 days ago when she came to the emergency room with a painful left groin mass. CT scan showed an incarcerated hernia with small intestine incarcerated. Fortunately this reduced. She is taken to surgery now for repair. Findings This was a direct left inguinal hernia. There was a lot of incarcerated properitoneal fat and peritoneum in the defect still. Description of Procedure Patient was taken to surgery and induced into general anesthesia. The abdomen is prepped and draped. Trocars were placed in the usual fashion starting with the applied Medical optical trocar and then transitioning to all 8 mm robotic trocars. Patient was placed in 18? Trendelenburg. Ilioinguinal block was placed. The robot was brought into the field docked and targeted. Instruments were positioned appropriately. The surgeon went to the robotic console. An anterior peritoneal flap was created just above the left inguinal structures. The flap was developed broadly proceeding from anterior to posterior. Medially dissection was carried down just below the left rectus muscle to Catrachito's ligament. Dissection progressed medially such that the pubis and the medial aspect of the right rectus muscle were exposed. The incarcerated hernia was easily seen in the direct space. The lateral aspect of the peritoneal flap was developed posteriorly. Middle portion of the flap was developed being careful of avoiding inguinal vascular structures. The round ligament was left in place and the peritoneum was carefully dissected off the round ligament. We then turned our attention to the incarcerated tissue. Placing gentle traction on the incarceration, slow dissection was carried out circumferentially around the defect. Slowly the incarcerated tissue reduced. There was a lot of tissue and a relatively small defect. Eventually all was reduced and the defect was easily seen. We continued the dissection exposing Catrachito's ligament and dissecting posterior to Catrachito's ligament. The dissection was further completed ensuring that the peritoneum was dissected posteriorly to give adequate space for the lower portions of the mesh. a large, 16 x 10 cm, left mid 3D max mesh was then placed over the inguinal canal structures. After positioning it appropriately, 3-0 Vicryl suture was used to secure it to Catrachito's ligament. It was also secured to the anterior abdominal wall on the medial and lateral aspect. I then closed the peritoneal opening with running 3 0 V lock suture. All looked good. We removed the instruments and undocked the robot. CO2 was evacuated from the abdominal cavity. The trocars were then removed. Incisions were closed with subcuticular 4-0 Monocryl skin suture. The wounds were dressed with Exofin surgical adhesive. The patient was awakened and taken to recovery in good condition. Sponge needle counts were correct x2. Implants Large, 16 x 10 cm, left mid 3DMax mesh Estimated Blood Loss -5 Drains No Packing No Pathology None sent Complications None Condition Stable Disposition PACU [facility] Billing Surgery - Charge Forward: Surgery Billing (Robotic laparoscopic repair incarcerated left inguinal hernia with mesh)
[2025-08-03] MEDS: oxyCODONE HCL (*CRX) 5 MG TAB IR PO (16:35)
== END 2025-08-03 17:10 | disposition home or self-care (01) ==
PROVIDERS: Anesthesiology; Visit Provider Surgery
PROC: 8E0Y4CZ Robotic Assisted Procedure of Lower Extremity, Percutaneous Endoscopic Approach (ICD-10-PCS; CPT 49650; principal; 2025-08-03 13:30)
DX: K40.30 Unilateral inguinal hernia, with obstruction, without gangrene, not specified as recurrent (principal); F17.210 Nicotine dependence, cigarettes, uncomplicated; F12.90 Cannabis use, unspecified, uncomplicated; Z87.19 Personal history of other diseases of the digestive system
CPT/HCPCS: 49650; S2900; 36415; 84702; 86850; 86900; 86901; J0690; A9270; C1781; J1100; J1885; J2003; J2250; J2405; J2704; J3010; J7120